=== PATIENT | male | born 1950 | race Caucasian/White ===

== ENCOUNTER 2018-01-12 09:56 | Emergency (ER) | payer OTHER, SELFPAY ==
[2018-01-12 10:05] VITALS: BP 161/83; PULSE 70; RESP 13; TEMP 36.8; O2SAT 99
--- NOTE | 2018-01-12 10:17 | ED.ARRPALP ---
HPI - Arrhythmia/Palpitations General Chief Complaint: Arrhythmia/Palpitations Stated Complaint: HEART IS POUNDING HARD Time Seen by Provider: 01/12/18 10:17 Source: patient Mode of arrival: ambulatory Limitations: no limitations History of Present Illness HPI narrative: Patient is a 67-year-old male who presents with 2 episodes of heart palpitations this morning. He has a history of PVCs he has actually had a Holter monitor back in 2017 which is when he was diagnosed. 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 He is followed by Dr. Franks in billing him. His this morning he was walking he felt a mild PVC which felt very typical then he felt a much larger 1. Both lasting of very briefly no chest pain. He has not had any since he has been in the emergency department. The he just wanted to be checked out. He denies any nausea diaphoresis or radiation of pain. MD complaint: skipped beats Onset (ago): minute(s) Related Data Home Medications Medication Instructions Recorded Confirmed carvedilol [Coreg] 3.125 mg PO Q DAY #0 08/03/17 01/12/18 diltiazem HCl [Cardizem LA] 0.5 tab PO BID #0 08/03/17 01/12/18 lisinopril 2 tab PO QPM #0 08/03/17 01/12/18 aspirin 81 mg tablet,delayed 81 mg PO QPM 12/29/17 01/12/18 release alprazolam [Xanax] 0.25 mg PO PRN PRN 01/12/18 01/12/18 doxazosin [Cardura] 8 tab PO QPM 01/12/18 01/12/18 Allergies Allergy/AdvReac Type Severity Reaction Status Date / Time Iodine and Iodide Containing Allergy Severe knocks Verified 01/12/18 10:46 Produc him out morphine [MORPHINE] Allergy Severe slows Verified 12/29/17 09:48 heart rate Review of Systems Review of Systems GENERAL: Denies chills, fatigue, malaise, fever, sweats, travel HEENT: Denies sinus pain, ear pain, sore throat, difficulty swallowing, neck pain RESPIRATORY: Denies dyspnea, cough, wheezing, hemoptysis, sputum. CARDIOVASCULAR: See HPI GASTROINTESTINAL: Denies nausea, vomiting, abdominal pain, diarrhea, constipation, melena. : Denies dysuria, frequency, incontinence, hematuria, urinary retention, flank pain. MUSCULOSKELETAL: Denies weakness, joint pain, or bony pain SKIN: No rash, no erythema, no pruritus NEUROLOGIC: Denies weakness, dizziness, headache, numbness, change in speech, confusion PSYCHIATRIC: No concerning psychosocial issues. 12 point review of systems is negative except for those stated above and HPI PFSH Medical History Coronary artery disease (Acute) Hypertension (Acute) Social History Smoking Status: Never smoker Exam Initial Vital Signs Initial Vital Signs: Vital Signs Temperature 98.2 F 01/12/18 10:05 Pulse Rate 70 01/12/18 10:05 Respiratory Rate 13 01/12/18 10:05 Blood Pressure 161/83 H 01/12/18 10:05 Pulse Oximetry 99 01/12/18 10:05 GENERAL: Well-appearing, well-nourished and in no acute distress. HEENT: Head atraumatic,EOMI, pupils reactive, face symmetric, neck is supple no JVD CARDIOVASCULAR: Regular rate and rhythm without murmurs, rubs or gallops. RESPIRATORY: Breath sounds equal bilaterally, no wheezes rales or rhonchi. ABDOMEN: Soft, nontender. Normoactive bowel sounds all 4 quadrants. No guarding or rebound. EXTREMITIES: Normal range of motion, no clubbing or edema. Neurovascularly intact NEUROLOGICAL: Alert and oriented x4.Normal gait and speech. SKIN: Warm, dry, no laceration, no petechiae, no rashes or lesions. Course Orders Ordered: ED Orders 01/12/18 10:19 Complete Blood Count AUTO DIFF Stat Comprehensive Metabolic Panel Stat Lipase Stat Troponin & CK Cardiac Panel Stat 01/12/18 10:33 XR chest 1V Stat Vital Signs - 8 hr 01/12/18 10:05 01/12/18 10:44 01/12/18 11:00 Temperature 98.2 F Pulse Rate 70 74 64 Respiratory Rate 13 14 17 Blood Pressure 161/83 H Blood Pressure [Left Arm] 152/84 H 141/78 H Pulse Oximetry 99 98 93 MDM - Arrhythmia/Palpitations Lab Data Attestation: I reviewed the patient's lab results. Result diagrams: 01/12/18 10:19 01/12/18 10:19 Lab Results 01/12/18 01/12/18 Range/Units 10:19 10:19 WBC 7.4 (4.5-11.0) X10^3/uL RBC 5.32 (4.5-5.9) X10^6/uL Hgb 17.1 (13.5-17.5) g/dL Hct 48.5 (41-53) % MCV 91.1 (80-100) fL MCH 32.1 (26-34) PG MCHC 35.2 (30-36) % RDW 13.5 (11.6-14.8) % Plt Count 216 (150-400) X10^3/uL Neut % (Auto) 49.3 L (50-75) % Lymph % (Auto) 36.3 (25-40) % [place] % (Auto) 6.7 (3-14) % Eos % (Auto) 5.3 H (2-4) % Baso % (Auto) 2.4 H (0-2) % Neut # (Auto) 3600 (1963-3338) /uL Sodium 144 (137-145) mmol/L Potassium 3.7 (3.4-5.1) mmol/L Chloride 106 (98-107) mmol/L Carbon Dioxide 26 (22-32) mmol/L BUN 12 (9-20) mg/dL Creatinine 0.90 (0.66-1.25) mg/dL Estimated GFR > 60.0 (>60) mL/min BUN/Creatinine Ratio 13.3 (6-22) Glucose 132 H (80-110) mg/dL Calcium 9.3 (8.4-10.2) mg/dL Total Bilirubin 0.7 (0.2-1.3) mg/dL AST 30 (17-59) IU/L ALT 23 (21-72) IU/L Alkaline Phosphatase 83 (38-126) U/L Total Creatine Kinase 57 (55-170) U/L Troponin I < 0.012 (0.01-0.034) ng/mL Total Protein 7.9 (6.3-8.2) g/dL Albumin 4.2 (3.5-5.0) g/dL Globulin 3.7 (1.7-4.1) g/dL Albumin/Globulin Ratio 1.1 (1.0-2.8) Lipase 71 (23-300) U/L Imaging Data Chest x-ray: Radiologist's impression: PROCEDURE: XR CHEST 1V INDICATIONS: chest pain TECHNIQUE: One view of the chest was acquired. COMPARISON: None. FINDINGS: Surgical changes and devices: None. Lungs and pleura: No pleural effusions or pneumothorax. Lungs are clear. Numerous hyperdensities scattered calcified granulomas measuring up to 5 mm Mediastinum: Mediastinal contours appear normal. Heart size is normal. Bones and chest wall: No suspicious bony lesions. Overlying soft tissues appear unremarkable. IMPRESSION: No acute disease. Numerous bilateral subcentimeter scattered presumed high density calcified granulomas although continued radiographic surveillance (in 6 months) to document stability could be performed given the absence of prior studies to exclude malignant/metastatic pulmonary nodule Dictated by: Virgil Young M.D. on 01/12/2018 at 11:03 ECG Data Attestation: I personally reviewed and interpreted this ECG as follows: Prior ECG tracings: not available for review Interpretation: Normal sinus rhythm rate [address] elevations no PVCs no T-wave inversions no priors to compare MDM Narrative Medical decision making narrative: Patient is aware of calcium deposits in his chest. He says he has had them for number of years. He has not been having any PVCs on the monitor he has been chest pain free. This sounds similar to PVCs. Patient has appointment with his primary care provider in 3 days. He had a nuclear stress test last June and is scheduled for 1 in 2018 he gets 1 every 2 years. I have discussed with him warning signs of when to return to the ED he understands we did not do a complete stress test but at this time I do not feel like he needs it. Signs and symptoms are consistent with PVCs. Discharge Plan Departure Patient Disposition: Home Clinical Impression: Palpitations Discharge Date/Time: 01/12/18 11:34 Interventions: ED Discharge Assessment Last Done: 01/12/18 11:33 Instructions: DI for Palpitations Activity Restrictions/Additional Instructions: *You have been diagnosed with heart palpitation *What to do: Needed follow up with her assistant associate professor in regards to heart palpitations and Holter monitor *Continue to take medications as directed *Follow up with your primary care provider in 2-3 days, Dr. Franks *Return to ER if you should have increasing chest pain, dizziness, lightheadedness increasing heart palpitations any new, worsening or concerning symptoms Prescriptions: No Action aspirin [Adult Low Dose Aspirin] 81 mg tablet,delayed release (DR/EC) 81 mg PO QPM RF: 0 lisinopril 40 MG tablet 2 tab PO QPM Qty: 0 RF: 0 diltiazem HCl [Cardizem LA] 420 MG tablet extended release 24 hr 0.5 tab PO BID Qty: 0 RF: 0 carvedilol [Coreg] 3.125 MG tablet 3.125 mg PO Q DAY Qty: 0 RF: 0 alprazolam [Xanax] 0.5 mg Tablet 0.25 mg PO PRN PRN (Reason: Anxiety) RF: 0 doxazosin [Cardura] 2 mg Tablet 8 tab PO QPM RF: 0 Referrals: Brian Franks MD [Non-Staff] - Gumaro Puckett MD [Primary Care Provider] -
--- NOTE | 2018-01-12 10:33 | DI.RAD.S_ITS ---
PROCEDURE: XR CHEST 1V INDICATIONS: chest pain TECHNIQUE: One view of the chest was acquired. COMPARISON: None. FINDINGS: Surgical changes and devices: None. Lungs and pleura: No pleural effusions or pneumothorax. Lungs are clear. Numerous hyperdensities scattered calcified granulomas measuring up to 5 mm Mediastinum: Mediastinal contours appear normal. Heart size is normal. Bones and chest wall: No suspicious bony lesions. Overlying soft tissues appear unremarkable. IMPRESSION: No acute disease. Numerous bilateral subcentimeter scattered presumed high density calcified granulomas although continued radiographic surveillance (in 6 months) to document stability could be performed given the absence of prior studies to exclude malignant/metastatic pulmonary nodule Dictated by: Virgil Young M.D. on 01/12/2018 at 11:03 Approved by: Virgil Young M.D. on 01/12/2018 at 11:05
[2018-01-12 10:38] LABS: Add Manual Diff / Slide Review NO; Basophils Percent Auto 2.4 % (0-2); Eosinophils Percent Auto 5.3 % (2-4); Hematocrit 48.5 % (41-53); Hemoglobin 17.1 g/dL (13.5-17.5); Lymphocytes Percent Auto 36.3 % (25-40); Mean Corpuscular HGB Conc 35.2 % (30-36); Mean Corpuscular Hemoglobin 32.1 PG (26-34); Mean Corpuscular Volume 91.1 fL (80-100); Monocytes Percent Auto 6.7 % (3-14); Neutrophils Absolute Auto 3600 /uL (3000-5900); Neutrophils Percent Auto 49.3 % (50-75); Platelet Count 216 X10^3/uL (150-400); Red Blood Cell Count 5.32 X10^6/uL (4.5-5.9); Red Cell Distribution Width 13.5 % (11.6-14.8); White Blood Cell Count 7.4 X10^3/uL (4.5-11.0)
[2018-01-12 10:44] VITALS: BP 152/84; PULSE 74; RESP 14; O2SAT 98
[2018-01-12 10:45] LABS: Alanine Aminotransferase 23 IU/L (21-72); Albumin 4.2 g/dL (3.5-5.0); Albumin Globulin Ratio 1.1 (1.0-2.8); Alkaline Phosphatase 83 U/L (38-126); Aspartate Aminotransferase 30 IU/L (17-59); BUN Creatinine Ratio 13.3 (6-22); Bilirubin Total 0.7 mg/dL (0.2-1.3); Blood Urea Nitrogen 12 mg/dL (9-20); Calcium 9.3 mg/dL (8.4-10.2); Carbon Dioxide 26 mmol/L (22-32); Chloride 106 mmol/L (98-107); Creatine Kinase 57 U/L (55-170); Estimated Glomerular Filt Rate > 60.0 mL/min (>60); Globulin 3.7 g/dL (1.7-4.1); Glucose 132 mg/dL (80-110); HEMOLYSIS 21 (0-50); Lipase 71 U/L (23-300); Potassium 3.7 mmol/L (3.4-5.1); Sodium 144 mmol/L (137-145); Total Protein 7.9 g/dL (6.3-8.2)
[2018-01-12 10:57] LABS: Troponin I < 0.012 ng/mL (0.01-0.034)
[2018-01-12 11:00] VITALS: BP 141/78; PULSE 64; RESP 17; O2SAT 93
== END 2018-01-12 11:34 | disposition home or self-care (01) ==
PROVIDERS: Emergency Provider Emergency Medicine; PCP Family Medicine
DX: R00.2 Palpitations (principal)
CPT/HCPCS: 36591; 71045; 80053; 82550; 82553; 83690; 84484; 85025; 93005; 93010; 93041; 99283; 99285

== ENCOUNTER 2018-03-22 06:48 | Emergency (ER) | payer OTHER, SELFPAY ==
[2018-03-22 07:02] VITALS: BP 171/84; PULSE 54; RESP 19; TEMP 36.7; O2SAT 97; BMI 35.9
--- NOTE | 2018-03-22 07:13 | DI.RAD.S_ITS ---
PROCEDURE: XR CHEST 1V INDICATIONS: chest pain TECHNIQUE: One view of the chest was acquired. COMPARISON: [facility], CR, XR CHEST 1V, 01/12/2018, 10:37. FINDINGS: Surgical changes and devices: None. Lungs and pleura: No pleural effusions or pneumothorax. Multiple calcified granulomas are noted, unchanged. There is overall appearance of minimal increased pulmonary vascularity. Mediastinum: Mediastinal contours appear normal. Heart size is normal. Bones and chest wall: No suspicious bony lesions. Overlying soft tissues appear unremarkable. IMPRESSION: Minimal increased pulmonary vascularity suggestive of edema. Dictated by: Sandi Schmitt M.D. on 03/22/2018 at 8:03 Approved by: Sandi Schmitt M.D. on 03/22/2018 at 8:04
--- NOTE | 2018-03-22 07:20 | PC.NURSE ---
pt reports two nights of burning chest on fire pain. ambulated self into ed this morning with slow and steady gate. pt is short of breath with ambulation. pt reports 2 stents placed after 2 heart attacks. This episode feels nothing like that. That felt like elephants sitting on my chest. Pt reported he stopped his xanax cold turkey and wonders if this episode is related to panic attack ptsd from [facility].
[2018-03-22 07:22] LABS: Add Manual Diff / Slide Review NO; Basophils Percent Auto 1.3 % (0-2); Eosinophils Percent Auto 3.9 % (2-4); Hematocrit 51.8 % (41-53); Hemoglobin 18.2 g/dL (13.5-17.5); Lymphocytes Percent Auto 34.1 % (25-40); Mean Corpuscular HGB Conc 35.1 % (30-36); Mean Corpuscular Hemoglobin 32.5 PG (26-34); Mean Corpuscular Volume 92.5 fL (80-100); Monocytes Percent Auto 7.2 % (3-14); Neutrophils Absolute Auto 5000 /uL (3000-5900); Neutrophils Percent Auto 53.5 % (50-75); Platelet Count 253 X10^3/uL (150-400); Red Blood Cell Count 5.59 X10^6/uL (4.5-5.9); Red Cell Distribution Width 13.3 % (11.6-14.8); White Blood Cell Count 9.4 X10^3/uL (4.5-11.0)
[2018-03-22 07:26] LABS: Alanine Aminotransferase 24 IU/L (21-72); Albumin 4.7 g/dL (3.5-5.0); Albumin Globulin Ratio 1.1 (1.0-2.8); Alkaline Phosphatase 88 U/L (38-126); Aspartate Aminotransferase 41 IU/L (17-59); BUN Creatinine Ratio 13.3 (6-22); Bilirubin Total 1.2 mg/dL (0.2-1.3); Blood Urea Nitrogen 12 mg/dL (9-20); Calcium 9.4 mg/dL (8.4-10.2); Carbon Dioxide 27 mmol/L (22-32); Chloride 102 mmol/L (98-107); Creatine Kinase 109 U/L (55-170); Estimated Glomerular Filt Rate > 60.0 mL/min (>60); Globulin 4.1 g/dL (1.7-4.1); Glucose 125 mg/dL (80-110); Lipase 106 U/L (23-300); Sodium 143 mmol/L (137-145); Total Protein 8.8 g/dL (6.3-8.2)
--- NOTE | 2018-03-22 07:36 | ED.CHESTPAIN ---
HPI - Chest Pain General Chief Complaint: Chest Pain Stated Complaint: whole chest is burning x3 hours Time Seen by Provider: 03/22/18 07:20 Source: patient Mode of arrival: ambulatory Limitations: no limitations History of Present Illness HPI narrative: Patient states that yesterday morning, he woke up with a sense of chest burning that spread across both sides of his chest. He states that about 30 sec after getting out of bed, the discomfort resolved. States he was fine all day long and then around 3:00 a.m. this morning he to that he was some burning sensation he states this time it lasted through morning decided to come patient states that he did not experience any shortness of breath, diaphoresis, or nausea. He states he has a history of indigestion from time to time, but that this has not been an ongoing problem for him. He does have a history of 2 MIs that had a normal stress test in 2017. He states he is due for another 05/23/2018. Patient denies any new pain or dyspnea on exertion. He states he has not been exercising much, and feels out of shape. Patient does have a history of chronic anxiety and was on Xanax since 1985 until a few weeks ago. He states that without the Xanax, he does become anxious more easily, and did feel little bit of anxiety during the episodes yesterday this. He states that currently, he is asymptomatic, and that symptoms resolved prior to him presenting to the emergency department. Patient has not been ill recently with anything and denies any other complaints this time. Discomfort at its worst was 6/10; now it is 0/10. Related Data Home Medications Medication Instructions Recorded Confirmed carvedilol [Coreg] 3.125 mg PO Q DAY #0 08/03/17 01/12/18 diltiazem HCl [Cardizem LA] 0.5 tab PO BID #0 08/03/17 01/12/18 lisinopril 2 tab PO QPM #0 08/03/17 01/12/18 aspirin 81 mg tablet,delayed 81 mg PO QPM 12/29/17 01/12/18 release alprazolam [Xanax] 0.25 mg PO PRN PRN 01/12/18 01/12/18 doxazosin [Cardura] 8 tab PO QPM 09/11/18 09/11/18 Allergies Allergy/AdvReac Type Severity Reaction Status Date / Time Iodine and Iodide Containing Allergy Severe knocks Verified 01/12/18 10:46 Produc him out morphine [MORPHINE] Allergy Severe slows Verified 12/29/17 09:48 heart rate Review of Systems Review of Systems All systems reviewed & are unremarkable except as noted in HPI and below Constitutional Denies chills, Denies fever(s), Denies lethargy and Denies weakness Eyes Denies change in vision, Denies eye discharge, Denies irritation and Denies loss of vision ENT Ears, Nose, Mouth, and Throat: Denies change in voice, Denies neck pain and Denies sore throat Cardiovascular Reports chest pain, Denies irregular heart rhythm, Denies lightheadedness, Denies palpitations, Denies dyspnea, Denies dyspnea on exertion and Denies orthopnea Respiratory Denies cough, Denies dyspnea, Denies dyspnea on exertion and Denies wheezing Gastrointestinal Gastrointestinal: Denies abdominal pain, Denies change in bowel habits, Denies diarrhea, Denies nausea and Denies vomiting Genitourinary Denies hematuria, Denies flank pain, Denies urinary incontinence and Denies urinary urgency Musculoskeletal Denies neck pain Integumentary/Breasts Denies pruritus, Denies erythema, Denies rash and Denies wounds Neurologic Denies confusion, Denies loss of vision and Denies weakness Psychiatric Denies anxiety, Denies confusion, Denies depression, Denies homicidal ideation and Denies suicidal ideation Endocrine Denies palpitations Hematologic/Lymphatic Denies easy bruising Allergic/Immunologic Denies wheezing [facility] Medical History Coronary artery disease (Acute) Hypertension (Acute) Social History Smoking Status: Never smoker Exam Initial Vital Signs Initial Vital Signs: Vital Signs Temperature 98.1 F 03/22/18 07:02 Pulse Rate 54 L 03/22/18 07:02 Respiratory Rate 03/22/18 07:02 Blood Pressure 171/84 H 03/22/18 07:02 Pulse Oximetry 97 03/22/18 07:02 Const General: cooperative and well developed Nutritional Appearance: well nourished Orientation: alert, awake, oriented x3 and not confused [facility] Head: normocephalic and atraumatic Ears: external ears normal Nose: external nose normal and No nasal discharge Face and sinus: face symmetric Mouth: oral mucosae normal and moist mucous membranes Teeth and gingiva: dentition normal Eyes General: appearance normal, both eyes and all related structures Eyelids: eyelids normal Conjunctivae: conjunctivae normal Sclera: sclerae normal Pupils: PERRL EOM: EOM intact bilaterally Neck Neck: normal visual inspection, trachea midline, No lymphadenopathy, No midline deformity and No JVD Lymphatic: No lymphedema Chest Chest: normal inspection of the chest Resp Effort & Inspection: normal respiratory effort, able to speak in complete sentences, no respiratory distress and no use of accessory muscles Auscultation: clear to auscultation bilaterally, no rales, no rhonchi and no wheezes Cardio Rate: regular rate Rhythm: regular rhythm Heart Sounds: no click, no gallops, no murmurs and no rubs Pulses: normal peripheral pulses GI Inspection: non-distended Palpation: soft, no hepatosplenomegaly, No guarding, No pulsatile mass and No tender Auscultation: normal bowel sounds Back/Spine/Pelvis Back: No CVA tenderness Cervical Spine: cervical ROM normal and No pain with cervical ROM Thoracic/Lumbar Spine: thoracic and lumbar spine normal to inspection Skin General: no rashes or lesions noted, No jaundice and No petechiae Neuro General: alert, oriented x3, gait normal and no focal motor deficits Speech: speech normal Extrem General: full ROM, no clubbing, cyanosis or edema, no pedal edema and no calf tenderness Psych Appearance: well kempt Mental Status: mental status grossly normal Attitude: cooperative Thought Content: normal and suicidality Judgment: judgment good Course Course Narrative: Patient remained stable and chest pain-free throughout his stay in the emergency department. His EKG was unremarkable. His cardiac enzymes were also unremarkable. I discussed with the patient that exercise would be beneficial to him, particularly if he is not having any worrisome symptoms with exercise. Additionally, the patient has a stress test coming up in June of 2018, and if this looks good, patient should work with doctor to develop an exercise program to help him get back in better shape and improve his health. We have discussed home management of the symptoms, as well as the usual indications for return. Orders Ordered: ED Orders 03/22/18 EKG-12 Lead Stat 03/22/18 07:00 Complete Blood Count AUTO DIFF Stat Comprehensive Metabolic Panel Stat Lipase Stat Troponin & CK Cardiac Panel Stat 03/22/18 07:13 XR chest 1V Stat Sodium Chloride (Normal Saline 0.9%) 1,000 mls @ 150 mls/hr IV CONT ASPEN Last Admin: 03/22/18 07:43 Dose: Not Given Discontinued Medications Aspirin (Aspirin Chew) 324 mg PO NOW ONE Stop: 03/22/18 07:14 Last Admin: 03/22/18 07:43 Dose: Not Given Vital Signs - 8 hr 03/22/18 07:02 03/22/18 07:44 Temperature 98.1 F Pulse Rate 54 L Respiratory Rate 19 Blood Pressure 171/84 H Blood Pressure [Right Arm] 134/83 Pulse Oximetry 97 MDM - Chest Pain Medical Records Data Attestation: I reviewed the patient's medical records. Lab Data Attestation: I reviewed the patient's lab results. Result diagrams: 03/22/18 07:00 03/22/18 07:00 Lab Results 03/22/18 03/22/18 Range/Units 07:00 07:00 WBC 9.4 (4.5-11.0) X10^3/uL RBC 5.59 (4.5-5.9) X10^6/uL Hgb 18.2 H (13.5-17.5) g/dL Hct 51.8 (41-53) % MCV 92.5 (80-100) fL MCH 32.5 (26-34) PG MCHC 35.1 (30-36) % RDW 13.3 (11.6-14.8) % Plt Count 253 (150-400) X10^3/uL Neut % (Auto) 53.5 (50-75) % Lymph % (Auto) 34.1 (25-40) % [place] % (Auto) 7.2 (3-14) % Eos % (Auto) 3.9 (2-4) % Baso % (Auto) 1.3 (0-2) % Neut # (Auto) 5000 (8114-3149) /uL Sodium 143 (137-145) mmol/L Potassium 4.0 (3.4-5.1) mmol/L Chloride 102 (98-107) mmol/L Carbon Dioxide 27 (22-32) mmol/L BUN 12 (9-20) mg/dL Creatinine 0.90 (0.66-1.25) mg/dL Estimated GFR > 60.0 (>60) mL/min BUN/Creatinine Ratio 13.3 (6-22) Glucose 125 H (80-110) mg/dL Calcium 9.4 (8.4-10.2) mg/dL Total Bilirubin 1.2 (0.2-1.3) mg/dL AST 41 (17-59) IU/L ALT 24 (21-72) IU/L Alkaline Phosphatase 88 (38-126) U/L Total Creatine Kinase 109 (55-170) U/L CK-MB (CK-2) 0.46 (<2.37) ng/mL CK-MB (CK-2) Rel Index 0.4 L (1.5-5.0) % Troponin I < 0.012 (0.01-0.034) ng/mL Total Protein 8.8 H (6.3-8.2) g/dL Albumin 4.7 (3.5-5.0) g/dL Globulin 4.1 (1.7-4.1) g/dL Albumin/Globulin Ratio 1.1 (1.0-2.8) Lipase 106 (23-300) U/L ECG Data Attestation: I personally reviewed and interpreted this ECG as follows: ( See below) Interpretation: 12 lead EKG performed on March 22, 2018 at 6:58 a.m.: Regular ventricular rhythm with a rate of 55 beats per minute PA interval 242 milliseconds QRS duration 97 milliseconds QTC interval 438 milliseconds normal axis no ectopy In summary, sinus bradycardia with first-degree AV block; nonspecific ST T wave abnormality; no evidence of acute DC; abnormal EKG, as interpreted by ED MD. Discharge Plan Departure Patient Disposition: Home Clinical Impression: Chest pain Interventions: ED Discharge Assessment Last Done: 03/22/18 08:19 Instructions: DI for Atypical Chest Pain Activity Restrictions/Additional Instructions: Your labs and EKG look great. There is no sign of heart attack at this time. You should plan to follow up for your stress test in June, as scheduled, and speak with your doctor about starting an exercise program that is appropriate for you, to help improve your overall health and heart health. If you develop chest pain with shortness of breath nausea and or sweating please return to the emergency department immediately. You may use [id number] products like Maalox or Tums to help with your heartburn. Prescriptions: No Action aspirin [Adult Low Dose Aspirin] 81 mg tablet,delayed release (DR/EC) 81 mg PO QPM RF: 0 lisinopril 40 MG tablet 2 tab PO QPM Qty: 0 RF: 0 diltiazem HCl [Cardizem LA] 420 MG tablet extended release 24 hr 0.5 tab PO BID Qty: 0 RF: 0 carvedilol [Coreg] 3.125 MG tablet 3.125 mg PO Q DAY Qty: 0 RF: 0 alprazolam [Xanax] 0.5 mg Tablet 0.25 mg PO PRN PRN (Reason: Anxiety) RF: 0 doxazosin [Cardura] 2 mg Tablet 8 tab PO QPM RF: 0 Referrals: Gumaro Puckett MD [Primary Care Provider] -
[2018-03-22 07:38] LABS: Troponin I < 0.012 ng/mL (0.01-0.034)
[2018-03-22 07:41] LABS: CKMB % Relative Index 0.4 % (1.5-5.0); Creatine Kinase MB 0.46 ng/mL (<2.37)
[2018-03-22 07:42] LABS: HEMOLYSIS 87 (0-50)
[2018-03-22 07:44] VITALS: BP 134/83
== END 2018-03-22 08:28 | disposition home or self-care (01) ==
PROVIDERS: Emergency Provider Emergency Medicine; PCP Family Medicine
DX: R07.89 Other chest pain (principal)
CPT/HCPCS: 36591; 71045; 80053; 82550; 82553; 83690; 84484; 85025; 93005; 99283; 99285

== ENCOUNTER 2018-03-27 19:52 | Emergency (ER) | payer OTHER, SELFPAY ==
--- NOTE | 2018-03-27 20:14 | ED_ITS ---
HPI - Chest Pain <CHERELLE Bright - Last Filed: 03/27/18 22:12> General Chief Complaint: Hypertension Stated Complaint: HIGH BP Time Seen by Provider: 03/27/18 20:13 Source: patient Mode of arrival: ambulatory Limitations: no limitations History of Present Illness HPI narrative: 67-year-old male with history of hypertension PTSD and anxiety that is a former smoker here for complaint of having elevated blood pressure over the past few days. He was seen in the emergency room several days ago and had a full workup that was negative for any acute findings. He states he has been taking his blood pressure medicine as prescribed. He does report that he has slowly been weaning himself off of Xanax over the past several months. He reports that he is totally stop taking the Xanax as a 2 weeks ago. He takes Xanax due to his PTSD issues. He denies any chest pain. Denies any headache. No abdominal pain. No shortness of breath. He denies any other concerns or complaints at this time. Related Data Home Medications Medication Instructions Recorded Confirmed carvedilol [Coreg] 3.125 mg PO Q DAY #0 08/03/17 01/12/18 diltiazem HCl [Cardizem LA] 0.5 tab PO BID #0 08/03/17 01/12/18 lisinopril 2 tab PO QPM #0 08/03/17 01/12/18 aspirin 81 mg tablet,delayed 81 mg PO QPM 12/29/17 01/12/18 release alprazolam [Xanax] 0.25 mg PO PRN PRN 01/12/18 01/12/18 doxazosin [Cardura] 8 tab PO QPM 01/12/18 01/12/18 Allergies Allergy/AdvReac Type Severity Reaction Status Date / Time Iodine and Iodide Containing Allergy Severe knocks Verified 03/27/18 20:19 Produc him out morphine [MORPHINE] Allergy Severe slows Verified 03/27/18 20:19 heart rate cimetidine Allergy Verified 03/27/18 20:19 Review of Systems <CHERELLE Bright - Last Filed: 03/27/18 22:12> Constitutional Denies chills, Denies fever(s), Denies lethargy and Denies weakness Eyes Denies change in vision, Denies eye discharge, Denies irritation and Denies loss of vision ENT Ears, Nose, Mouth, and Throat: Denies change in voice, Denies neck pain and Denies sore throat Cardiovascular Denies chest pain, Denies irregular heart rhythm, Denies lightheadedness, Denies palpitations, Denies dyspnea, Denies dyspnea on exertion and Denies orthopnea Comments: Elevated blood pressure Respiratory Denies cough, Denies dyspnea, Denies dyspnea on exertion and Denies wheezing Gastrointestinal Gastrointestinal: Denies abdominal pain, Denies change in bowel habits, Denies diarrhea, Denies nausea and Denies vomiting Musculoskeletal Denies neck pain Integumentary/Breasts Denies pruritus, Denies erythema, Denies rash and Denies wounds Neurologic Denies confusion, Denies loss of vision and Denies weakness Psychiatric Denies anxiety, Denies confusion, Denies depression, Denies homicidal ideation and Denies suicidal ideation Endocrine Denies palpitations Hematologic/Lymphatic Denies easy bruising Allergic/Immunologic Denies wheezing Exam <CHERELLE Bright - Last Filed: 03/27/18 22:12> Initial Vital Signs Initial Vital Signs: Vital Signs Pulse Rate 63 03/27/18 20:19 Respiratory Rate 12 03/27/18 20:19 Blood Pressure 192/93 H 03/27/18 20:19 Pulse Oximetry 98 03/27/18 20:19 Const General: cooperative and well developed Nutritional Appearance: well nourished Orientation: alert, awake, oriented x3 and not confused [facility] Mouth: oral mucosae normal and moist mucous membranes Eyes Conjunctivae: conjunctivae normal Sclera: sclerae normal Pupils: PERRL EOM: EOM intact bilaterally Resp Effort & Inspection: normal respiratory effort, able to speak in complete sentences, no respiratory distress and no use of accessory muscles Auscultation: clear to auscultation bilaterally, no rales, no rhonchi and no wheezes Cardio Rate: regular rate Rhythm: regular rhythm Heart Sounds: no click, no gallops, no murmurs and no rubs Pulses: normal peripheral pulses GI Inspection: non-distended Palpation: soft, no hepatosplenomegaly, No guarding, No pulsatile mass and No tender Auscultation: normal bowel sounds General: No CVA tenderness Skin General: no rashes or lesions noted, No jaundice and No petechiae Neuro General: alert, oriented x3, gait normal and no focal motor deficits Speech: speech normal <DO Gracie Brooks Last Filed: 03/28/18 06:12> Initial Vital Signs Initial Vital Signs: Vital Signs Pulse Rate 63 03/27/18 20:19 Respiratory Rate 12 03/27/18 20:19 Blood Pressure 192/93 H 03/27/18 20:19 Pulse Oximetry 98 03/27/18 20:19 Course <CHERELLE Bright - Last Filed: 03/27/18 22:12> Orders Ordered: ED Orders 03/27/18 20:42 XR chest 1V Stat 03/27/18 21:00 Complete Blood Count AUTO DIFF Stat Comprehensive Metabolic Panel Stat Troponin & CK Cardiac Panel Stat Vital Signs - 8 hr 03/27/18 20:19 03/27/18 21:00 03/27/18 21:59 Pulse Rate 63 55 L 57 L Respiratory Rate 12 18 20 Blood Pressure 192/93 H 146/87 H Blood Pressure [Right Arm] 184/98 H Pulse Oximetry 98 93 98 <Emmett Cornell DO - Last Filed: 03/28/18 06:12> Orders Ordered: ED Orders 03/27/18 20:42 XR chest 1V Stat 03/27/18 21:00 Complete Blood Count AUTO DIFF Stat Comprehensive Metabolic Panel Stat Troponin & CK Cardiac Panel Stat Vital Signs - 8 hr 03/27/18 20:19 03/27/18 21:00 03/27/18 21:59 Pulse Rate 63 55 L 57 L Respiratory Rate 12 18 20 Blood Pressure 192/93 H 146/87 H Blood Pressure [Right Arm] 184/98 H Pulse Oximetry 98 93 98 MDM - Chest Pain <CHERELLE Bright - Last Filed: 03/27/18 22:12> Lab Data Result diagrams: 03/27/18 21:00 03/27/18 21:00 Lab Results 03/27/18 03/27/18 Range/Units 21:00 21:00 WBC 11.4 H (4.5-11.0) X10^3/uL RBC 5.19 (4.5-5.9) X10^6/uL Hgb 16.4 (13.5-17.5) g/dL Hct 48.2 (41-53) % MCV 92.9 (80-100) fL MCH 31.6 (26-34) PG MCHC 34.1 (30-36) % RDW 13.1 (11.6-14.8) % Plt Count 229 (150-400) X10^3/uL Neut % (Auto) 54.7 (50-75) % Lymph % (Auto) 32.3 (25-40) % Bonner % (Auto) 9.5 (3-14) % Eos % (Auto) 3.3 (2-4) % Baso % (Auto) 0.2 (0-2) % Neut # (Auto) 6200 H (8074-5703) /uL Sodium 141 (137-145) mmol/L Potassium 3.7 (3.4-5.1) mmol/L Chloride 105 (98-107) mmol/L Carbon Dioxide 25 (22-32) mmol/L BUN 14 (9-20) mg/dL Creatinine 0.90 (0.66-1.25) mg/dL Estimated GFR > 60.0 (>60) mL/min BUN/Creatinine Ratio 15.6 (6-22) Glucose 113 H (80-110) mg/dL Calcium 9.2 (8.4-10.2) mg/dL Total Bilirubin 0.5 (0.2-1.3) mg/dL AST 29 (17-59) IU/L ALT 29 (21-72) IU/L Alkaline Phosphatase 76 (38-126) U/L Total Creatine Kinase 97 (55-170) U/L CK-MB (CK-2) TNP CK-MB (CK-2) Rel Index TNP Troponin I < 0.012 (0.01-0.034) ng/mL Total Protein 7.6 (6.3-8.2) g/dL Albumin 4.1 (3.5-5.0) g/dL Globulin 3.5 (1.7-4.1) g/dL Albumin/Globulin Ratio 1.2 (1.0-2.8) Imaging Data Chest x-ray: Radiologist's impression: [address] [address] XRay Report Signed Patient: Ozzy Dooley EMR#: [id number] : 1Acct:[id number] Age/Sex: 67 / MDate of Service: 03/27/18 Loc: ED Accession Number: [id number] Procedure: XR chest 1V Ordering Provider: Calin Pierson PROCEDURE: XR CHEST 1V INDICATIONS: States elevated blood pressure TECHNIQUE: One view of the chest was acquired. COMPARISON: [facility], CR, XR CHEST 1V, 03/22/2018, 7:34. FINDINGS: Surgical changes and devices: None. Lungs and pleura: No pleural effusions or pneumothorax. Bilateral left greater than right calcified granulomata are unchanged. Lungs are otherwise clear. Mediastinum: Mediastinal contours appear normal. Heart size is normal. Bones and chest wall: No suspicious bony lesions. Overlying soft tissues appear unremarkable. IMPRESSION: No acute process. Dictated by: Reggie Chery M.D. on 03/27/2018 at 20:54 Approved by: Reggie Chery M.D. on 03/27/2018 at 20:54 ECG Data Interpretation: EKG shows normal sinus rhythm with no ST elevation or depression. No ectopy. Ventricular rate is 61. Pr interval of 246. QRS duration 96. QT of 424. MDM Narrative Medical decision making narrative: Chest x-ray was obtained was negative for any acute findings. CBC and Chem panel was obtained was also unremarkable. Cardiac enzymes were obtained and were negative. Patient with no pain or discomfort at this time frame. No signs of end-organ damage. Differential between his PTSD/anxiety causing his blood pressure to be elevated as he is not taking his Xanax anymore or whether not his blood pressure is not well controlled. Will have patient monitor his blood pressure and follow up with his primary care provider later this week. For any worsening symptoms return to the emergency room. Blood pressure is was in the 180s over 90s today <Emmett Cornell DO - Last Filed: 03/28/18 06:12> Lab Data Lab Results 03/27/18 03/27/18 Range/Units 21:00 21:00 WBC 11.4 H (4.5-11.0) X10^3/uL RBC 5.19 (4.5-5.9) X10^6/uL Hgb 16.4 (13.5-17.5) g/dL Hct 48.2 (41-53) % MCV 92.9 (80-100) fL MCH 31.6 (26-34) PG MCHC 34.1 (30-36) % RDW 13.1 (11.6-14.8) % Plt Count 229 (150-400) X10^3/uL Neut % (Auto) 54.7 (50-75) % Lymph % (Auto) 32.3 (25-40) % Bonner % (Auto) 9.5 (3-14) % Eos % (Auto) 3.3 (2-4) % Baso % (Auto) 0.2 (0-2) % Neut # (Auto) 6200 H (5284-2829) /uL Sodium 141 (137-145) mmol/L Potassium 3.7 (3.4-5.1) mmol/L Chloride 105 (98-107) mmol/L Carbon Dioxide 25 (22-32) mmol/L BUN 14 (9-20) mg/dL Creatinine 0.90 (0.66-1.25) mg/dL Estimated GFR > 60.0 (>60) mL/min BUN/Creatinine Ratio 15.6 (6-22) Glucose 113 H (80-110) mg/dL Calcium 9.2 (8.4-10.2) mg/dL Total Bilirubin 0.5 (0.2-1.3) mg/dL AST 29 (17-59) IU/L ALT 29 (21-72) IU/L Alkaline Phosphatase 76 (38-126) U/L Total Creatine Kinase 97 (55-170) U/L CK-MB (CK-2) TNP CK-MB (CK-2) Rel Index TNP Troponin I < 0.012 (0.01-0.034) ng/mL Total Protein 7.6 (6.3-8.2) g/dL Albumin 4.1 (3.5-5.0) g/dL Globulin 3.5 (1.7-4.1) g/dL Albumin/Globulin Ratio 1.2 (1.0-2.8) Discharge Plan Departure Patient Disposition: Home Clinical Impression: Hypertension Discharge Date/Time: 03/27/18 21:59 Interventions: ED Discharge Assessment Last Done: 03/27/18 21:59 Instructions: DI for High Blood Pressure Activity Restrictions/Additional Instructions: Laboratory results and chest x-ray were unremarkable today. Make sure your checking her blood pressure daily and writing down your results to bring the results with you when you follow-up with her primary care provider. Elevated blood pressure may be due to anxiety secondary to the PTSD or may be due high blood pressure and may need to have medication changes. Follow up with her primary care provider. For any worsening symptoms return to the emergency room. Prescriptions: No Action aspirin [Adult Low Dose Aspirin] 81 mg tablet,delayed release (DR/EC) 81 mg PO QPM RF: 0 lisinopril 40 MG tablet 2 tab PO QPM Qty: 0 RF: 0 diltiazem HCl [Cardizem LA] 420 MG tablet extended release 24 hr 0.5 tab PO BID Qty: 0 RF: 0 carvedilol [Coreg] 3.125 MG tablet 3.125 mg PO Q DAY Qty: 0 RF: 0 alprazolam [Xanax] 0.5 mg Tablet 0.25 mg PO PRN PRN (Reason: Anxiety) RF: 0 doxazosin [Cardura] 2 mg Tablet 8 tab PO QPM RF: 0 Referrals: Gumaro Puckett MD [Primary Care Provider] - <Emmett Cornell DO - Last Filed: 03/28/18 06:12> Cosign ED Attending Dada Attestation: I was immediately available in the department for consultation. Documentation has been reviewed. I agree with assessment and plan.
[2018-03-27 20:19] VITALS: BP 192/93; PULSE 63; RESP 12; O2SAT 98; BMI 34.3
--- NOTE | 2018-03-27 20:42 | DI.RAD.S_ITS ---
PROCEDURE: XR CHEST 1V INDICATIONS: States elevated blood pressure TECHNIQUE: One view of the chest was acquired. COMPARISON: [facility], CR, XR CHEST 1V, 03/22/2018, 7:34. FINDINGS: Surgical changes and devices: None. Lungs and pleura: No pleural effusions or pneumothorax. Bilateral left greater than right calcified granulomata are unchanged. Lungs are otherwise clear. Mediastinum: Mediastinal contours appear normal. Heart size is normal. Bones and chest wall: No suspicious bony lesions. Overlying soft tissues appear unremarkable. IMPRESSION: No acute process. Dictated by: Reggie Chery M.D. on 03/27/2018 at 20:54 Approved by: Reggie Chery M.D. on 03/27/2018 at 20:54
[2018-03-27 21:00] VITALS: BP 184/98; PULSE 55; RESP 18; O2SAT 93
--- NOTE | 2018-03-27 21:05 | PC.NURSE ---
Pt states gradual increase in blood pressure over past few days. Has a tingling sensation in his nose and state he feels off
[2018-03-27 21:11] LABS: Add Manual Diff / Slide Review NO; Basophils Percent Auto 0.2 % (0-2); Eosinophils Percent Auto 3.3 % (2-4); Hematocrit 48.2 % (41-53); Hemoglobin 16.4 g/dL (13.5-17.5); Lymphocytes Percent Auto 32.3 % (25-40); Mean Corpuscular HGB Conc 34.1 % (30-36); Mean Corpuscular Hemoglobin 31.6 PG (26-34); Mean Corpuscular Volume 92.9 fL (80-100); Monocytes Percent Auto 9.5 % (3-14); Neutrophils Absolute Auto 6200 /uL (3000-5900); Neutrophils Percent Auto 54.7 % (50-75); Platelet Count 229 X10^3/uL (150-400); Red Blood Cell Count 5.19 X10^6/uL (4.5-5.9); Red Cell Distribution Width 13.1 % (11.6-14.8); White Blood Cell Count 11.4 X10^3/uL (4.5-11.0)
[2018-03-27 21:18] LABS: Alanine Aminotransferase 29 IU/L (21-72); Albumin 4.1 g/dL (3.5-5.0); Albumin Globulin Ratio 1.2 (1.0-2.8); Alkaline Phosphatase 76 U/L (38-126); Aspartate Aminotransferase 29 IU/L (17-59); BUN Creatinine Ratio 15.6 (6-22); Bilirubin Total 0.5 mg/dL (0.2-1.3); Blood Urea Nitrogen 14 mg/dL (9-20); Calcium 9.2 mg/dL (8.4-10.2); Carbon Dioxide 25 mmol/L (22-32); Chloride 105 mmol/L (98-107); Creatine Kinase 97 U/L (55-170); Estimated Glomerular Filt Rate > 60.0 mL/min (>60); Globulin 3.5 g/dL (1.7-4.1); Glucose 113 mg/dL (80-110); HEMOLYSIS 47 (0-50); Potassium 3.7 mmol/L (3.4-5.1); Sodium 141 mmol/L (137-145); Total Protein 7.6 g/dL (6.3-8.2)
[2018-03-27 21:30] LABS: Troponin I < 0.012 ng/mL (0.01-0.034)
[2018-03-27 21:59] VITALS: BP 146/87; PULSE 57; RESP 20; O2SAT 98
== END 2018-03-27 21:59 | disposition home or self-care (01) ==
PROVIDERS: Emergency Provider Nurse Practitioner Family; PCP Family Medicine
DX: I10 Essential (primary) hypertension (principal)
CPT/HCPCS: 36415; 71045; 80053; 82550; 84484; 85025; 93005; 99283; 99285

== ENCOUNTER 2018-04-26 22:28 | Emergency (ER) | payer OTHER, SELFPAY ==
[2018-04-26 22:41] VITALS: BP 160/90; PULSE 77; RESP 18; TEMP 36.9; O2SAT 97; BMI 33.6
--- NOTE | 2018-04-26 23:06 | DI.RAD.S_ITS ---
PROCEDURE: XR CHEST 1V INDICATIONS: palpitation TECHNIQUE: One view of the chest was acquired. COMPARISON: [facility], CR, XR CHEST 1V, 03/27/2018, 20:47. FINDINGS: Surgical changes and devices: None. Lungs and pleura: No pleural effusions or pneumothorax. There is mild pulmonary vascular congestion. Increased reticular lung markings are noted. Numerous calcified granuloma are again seen in bilateral lung steve. No definite focal infiltrate. Mediastinum: Mediastinal contours appear normal. Heart size is moderately enlarged. Bones and chest wall: No suspicious bony lesions. Overlying soft tissues appear unremarkable. IMPRESSION: Mild pulmonary vascular congestion. Chronic increased interstitial lung markings. Bilateral calcified granuloma. No definite focal infiltrate. No gross pneumothorax. Dictated by: Dilan Alvarado M.D. on 04/27/2018 at 9:21 Approved by: Dilan Alvarado M.D. on 04/27/2018 at 9:21
[2018-04-26 23:15] VITALS: BP 129/73; PULSE 62; RESP 18; O2SAT 95
[2018-04-26 23:28] LABS: Add Manual Diff / Slide Review NO; Basophils Percent Auto 1.3 % (0-2); Eosinophils Percent Auto 3.7 % (2-4); Hematocrit 47.4 % (41-53); Hemoglobin 16.8 g/dL (13.5-17.5); Lymphocytes Percent Auto 40.5 % (25-40); Mean Corpuscular HGB Conc 35.4 % (30-36); Mean Corpuscular Hemoglobin 32.7 PG (26-34); Mean Corpuscular Volume 92.5 fL (80-100); Monocytes Percent Auto 6.7 % (3-14); Neutrophils Absolute Auto 4900 /uL (1500-7000); Neutrophils Percent Auto 47.8 % (50-75); Platelet Count 213 X10^3/uL (150-400); Red Blood Cell Count 5.12 X10^6/uL (4.5-5.9); Red Cell Distribution Width 13.4 % (11.6-14.8); White Blood Cell Count 10.2 X10^3/uL (4.5-11.0)
[2018-04-26 23:30] VITALS: BP 142/72; PULSE 58; RESP 16; O2SAT 94
[2018-04-26 23:36] LABS: Alanine Aminotransferase 32 IU/L (21-72); Albumin 4.2 g/dL (3.5-5.0); Albumin Globulin Ratio 1.2 (1.0-2.8); Alkaline Phosphatase 72 U/L (38-126); Aspartate Aminotransferase 37 IU/L (17-59); Bilirubin Total 0.6 mg/dL (0.2-1.3); Blood Urea Nitrogen 18 mg/dL (9-20); Carbon Dioxide 25 mmol/L (22-32); Chloride 103 mmol/L (98-107); Creatine Kinase 82 U/L (55-170); Estimated Glomerular Filt Rate > 60.0 mL/min (>60); Globulin 3.6 g/dL (1.7-4.1); Glucose 111 mg/dL (80-110); Potassium 3.5 mmol/L (3.4-5.1); Sodium 144 mmol/L (137-145); Total Protein 7.8 g/dL (6.3-8.2)
[2018-04-26 23:39] LABS: HEMOLYSIS 54 (0-50)
[2018-04-26 23:49] LABS: Troponin I < 0.012 ng/mL (0.01-0.034)
[2018-04-27 00:19] LABS: Thyroid Stimulating Hormone 1.99 uIU/mL (0.47-4.68)
[2018-04-27 00:42] VITALS: BP 155/77; PULSE 49; RESP 19; O2SAT 97
--- NOTE | 2018-04-27 01:07 | ED.ARRPALP ---
HPI - Arrhythmia/Palpitations General Chief Complaint: Arrhythmia/Palpitations Stated Complaint: heart pounding Time Seen by Provider: 04/27/18 00:09 Source: patient Mode of arrival: ambulatory Limitations: no limitations History of Present Illness HPI narrative: A 67-year-old male who comes in with complaint of palpitations. Patient states that each night out of the last 3 nights he has woken from sleep with a pounding fast heartbeat. Patient states that he feels very anxious. He thought he was having a panic attack so we tried Xanax which helped for the 1st 2 nights. Patient has had a history of palpitations and has been diagnosed with PVCs. He has worn a Holter monitor in the past. Most recently a couple months ago. Patient denies any fevers, no lightheadedness or passing-out, no chest pain or pressure, no shortness of breath. He feels like he has a burning in his back and describes it as his entire back but does not feel pressure or pain. Patient is not having any new diarrhea or constipation no new urinary issues or swelling in his extremities. He sees Dr. Franks through Cardiology for coronary artery disease. He does take diltiazem but per the patient does not have any cardiac arrhythmia other than occasional PVCs. He states this was started after his last heart attack many years ago and was never stopped. Related Data Home Medications Medication Instructions Recorded Confirmed carvedilol [Coreg] 3.125 mg PO Q DAY #0 08/03/17 01/12/18 diltiazem HCl [Cardizem LA] 0.5 tab PO BID #0 08/03/17 01/12/18 lisinopril 2 tab PO QPM #0 08/03/17 01/12/18 aspirin 81 mg tablet,delayed 81 mg PO QPM 12/29/17 01/12/18 release alprazolam [Xanax] 0.25 mg PO PRN PRN 01/12/18 01/12/18 doxazosin [Cardura] 8 tab PO QPM 01/12/18 01/12/18 diltiazem HCl 04/26/18 doxazosin 4 tab 04/26/18 Allergies Allergy/AdvReac Type Severity Reaction Status Date / Time Iodine and Iodide Containing Allergy Severe knocks Verified 04/26/18 22:46 Produc him out morphine [MORPHINE] Allergy Severe slows Verified 04/26/18 22:46 heart rate cimetidine Allergy Verified 04/26/18 22:46 Review of Systems Review of Systems All systems reviewed & are unremarkable except as noted in HPI and below Constitutional Denies chills, Denies fatigue, Denies fever(s) and Denies weakness Cardiovascular Denies chest pain, Denies chest pain at rest, Denies diaphoresis, Denies syncope, Reports rapid heart rate, Denies edema, Denies irregular heart rhythm, Denies lightheadedness, Denies radiating jaw, neck or arm pain, Denies palpitations, Denies dyspnea, Denies dyspnea on exertion, Denies orthopnea and Reports slow heart rate (normally has slow heart rate) Respiratory Denies chest congestion, Denies cough, Denies excessive phlegm production, Denies dyspnea and Denies dyspnea on exertion Gastrointestinal Gastrointestinal: Denies abdominal pain, Denies change in bowel habits, Denies diarrhea, Denies nausea and Denies vomiting Genitourinary Denies dysuria, Denies flank pain and Denies urinary frequency Musculoskeletal Denies back pain Neurologic Denies syncope and Denies weakness Psychiatric Reports anxiety and Reports other (ptsd) Endocrine Denies fatigue and Denies palpitations [facility] Medical History Coronary artery disease (Acute) Hypertension (Acute) Social History Smoking Status: Former smoker Exam Narrative Exam Narrative: GENERAL: Alert and oriented x three, obese, well-appearing male in mild distress. Patient walked to the bathroom and returned to the room just prior to my evaluation without any issue. HEENT: Head normocephalic, atraumatic, EOMI, pupils reactive, face symmetric, moist mucous membranes NECK: Supple, full range of motion CARDIOVASCULAR: Regular rate and rhythm without murmurs, rubs or gallops. RESPIRATORY: Breath sounds equal bilaterally, no wheezes rales or rhonchi. ABDOMEN: Soft, nontender. Normoactive bowel sounds all 4 quadrants. No guarding or rebound, rigidity, no mass : No CVA tenderness EXTREMITIES: Normal range of motion, no clubbing or edema. Neurovascularly intact NEUROLOGICAL: Cranial nerves II through XII grossly intact. Moving all extremities SKIN: Warm, dry, no petechiae, no rashes or lesions. Initial Vital Signs Initial Vital Signs: Vital Signs Temperature 98.4 F 04/26/18 22:41 Pulse Rate 77 04/26/18 22:41 Respiratory Rate 18 04/26/18 22:41 Blood Pressure 160/90 H 04/26/18 22:41 Pulse Oximetry 97 04/26/18 22:41 Course Orders Ordered: ED Orders 04/26/18 22:34 EKG-12 Lead Stat 04/26/18 23:06 XR chest 1V Stat 04/26/18 23:18 Complete Blood Count AUTO DIFF Stat Comprehensive Metabolic Panel Stat Magnesium Stat Thyroid Stimulating Hormone Stat Troponin & CK Cardiac Panel Stat Vital Signs - 8 hr 04/26/18 22:41 04/26/18 23:15 04/26/18 23:30 Temperature 98.4 F Pulse Rate 77 62 58 L Respiratory Rate 18 18 16 Blood Pressure 160/90 H Blood Pressure [Right Arm] 129/73 142/72 H Pulse Oximetry 97 95 94 04/27/18 00:42 04/27/18 01:23 Temperature Pulse Rate 49 L 53 L Respiratory Rate 19 14 Blood Pressure 139/91 H Blood Pressure [Right Arm] 155/77 H Pulse Oximetry 97 97 MDM - Arrhythmia/Palpitations Lab Data Attestation: I reviewed the patient's lab results. Result diagrams: 04/26/18 23:18 04/26/18 23:18 Lab Results 04/26/18 04/26/18 04/26/18 Range/Units 23:18 23:18 23:18 WBC 10.2 (4.5-11.0) X10^3/uL RBC 5.12 (4.5-5.9) X10^6/uL Hgb 16.8 (13.5-17.5) g/dL Hct 47.4 (41-53) % MCV 92.5 (80-100) fL MCH 32.7 (26-34) PG MCHC 35.4 (30-36) % RDW 13.4 (11.6-14.8) % Plt Count 213 (150-400) X10^3/uL Neut % (Auto) 47.8 L (50-75) % Lymph % (Auto) 40.5 H (25-40) % Tyrrell % (Auto) 6.7 (3-14) % Eos % (Auto) 3.7 (2-4) % Baso % (Auto) 1.3 (0-2) % Neut # (Auto) 4900 (6731-1811) /uL Sodium 144 (137-145) mmol/L Potassium 3.5 (3.4-5.1) mmol/L Chloride 103 (98-107) mmol/L Carbon Dioxide 25 (22-32) mmol/L BUN 18 (9-20) mg/dL Creatinine 1.00 (0.66-1.25) mg/dL Estimated GFR > 60.0 (>60) mL/min BUN/Creatinine Ratio 18.0 (6-22) Glucose 111 H (80-110) mg/dL Calcium 9.0 (8.4-10.2) mg/dL Magnesium 2.0 (1.6-2.3) mg/dL Total Bilirubin 0.6 (0.2-1.3) mg/dL AST 37 (17-59) IU/L ALT 32 (21-72) IU/L Alkaline Phosphatase 72 (38-126) U/L Total Creatine Kinase 82 (55-170) U/L CK-MB (CK-2) TNP CK-MB (CK-2) Rel Index TNP Troponin I < 0.012 (0.01-0.034) ng/mL Total Protein 7.8 (6.3-8.2) g/dL Albumin 4.2 (3.5-5.0) g/dL Globulin 3.6 (1.7-4.1) g/dL Albumin/Globulin Ratio 1.2 (1.0-2.8) TSH 1.99 (0.47-4.68) uIU/mL Imaging Data Chest x-ray: Attestation: I personally reviewed and interpreted this imaging study as follows: My impression: No effusion, no pneumonia or infiltrate, no pneumothorax. Patient has bilateral granulomas that appears similar to 03/27/2018. mediastinum appears similar. ECG Data Attestation: I personally reviewed and interpreted this ECG as follows: Prior ECG tracings: available for review (Appears similar to 03/22/2018.) Interpretation: Sinus bradycardia with a first-degree AV block rate of 59 P are interval of 238, QRS of 118 and QTC of [address] elevation, nonspecific ST changes. MDM Narrative Medical decision making narrative: Patient has been having palpitations that wake him from sleep for the last 3 nights. Patient states they do not happen during the day. He is on diltiazem which seems odd for anything other than cardiac arrhythmia but patient states that he has been told he has PVCs but nothing else. He does see cardiology. He states he has had a Holter monitor probably in the last 6 months. Patient and discussed he has follow-up on May 07 plan to keep that appointment. We discussed signs and symptoms to watch for. Patient is comfortable returning home, recommended to continue his medications at this time. We discussed the possible differential of causes. Discharge Plan Departure Patient Disposition: Home Clinical Impression: Heart palpitations Discharge Date/Time: 04/27/18 01:23 Interventions: ED Discharge Assessment Last Done: 04/27/18 01:23 Instructions: DI for Palpitations Activity Restrictions/Additional Instructions: Follow-up with your terrazzo worker helper your scheduled appointment. Discuss possible holter/ziopatch with your terrazzo worker helper. Continue your home medications as prescribed. Return to the emergency department for worsening symptoms, new chest pain, shortness of breath, passing out, persistent vomiting other new or concerning symptoms. Prescriptions: No Action aspirin [Adult Low Dose Aspirin] 81 mg tablet,delayed release (DR/EC) 81 mg PO QPM RF: 0 lisinopril 40 MG tablet 2 tab PO QPM Qty: 0 RF: 0 diltiazem HCl [Cardizem LA] 420 MG tablet extended release 24 hr 0.5 tab PO BID Qty: 0 RF: 0 carvedilol [Coreg] 3.125 MG tablet 3.125 mg PO Q DAY Qty: 0 RF: 0 alprazolam [Xanax] 0.5 mg Tablet 0.25 mg PO PRN PRN (Reason: Anxiety) RF: 0 doxazosin [Cardura] 2 mg Tablet 8 tab PO QPM RF: 0 diltiazem HCl 420 mg tablet extended release 24 hr RF: 0 doxazosin 2 mg tablet 4 tab RF: 0 Referrals: Gumaro Puckett MD [Primary Care Provider] -
[2018-04-27 01:23] VITALS: BP 139/91; PULSE 53; RESP 14; O2SAT 97
== END 2018-04-27 01:23 | disposition home or self-care (01) ==
PROVIDERS: Emergency Provider Emergency Medicine; PCP Family Medicine
DX: R00.2 Palpitations (principal)
CPT/HCPCS: 71045; 80053; 82550; 83735; 84443; 84484; 85025; 93005; 99283; 99285

== ENCOUNTER 2018-05-24 00:50 | Emergency (ER) | payer OTHER, SELFPAY ==
[2018-05-24 01:14] VITALS: BP 159/97; PULSE 61; RESP 16; O2SAT 96; BMI 38.4
[2018-05-24 01:16] VITALS: BP 159/86; PULSE 52; RESP 12; TEMP 36.2; O2SAT 96
--- NOTE | 2018-05-24 01:16 | DI.RAD.S_ITS ---
PROCEDURE: XR CHEST 1V INDICATIONS: chest pain TECHNIQUE: One view of the chest was acquired. COMPARISON: [facility], CR, XR CHEST 1V, 01/12/2018, 10:37. [facility], CR, XR CHEST 1V, 04/26/2018, 23:31. [facility], CR, XR CHEST 1V, 03/27/2018, 20:47. FINDINGS: Surgical changes and devices: None. Lungs and pleura: No pleural effusions or pneumothorax. Lungs are again seen to contain multiple bilateral left greater than right calcified granulomas, each measuring approximately 4-6 mm in dimension.. Mediastinum: Mediastinal contours appear normal. Heart size is normal. Bones and chest wall: No suspicious bony lesions. Overlying soft tissues appear unremarkable. IMPRESSION: Bilateral left greater than right stable appearing calcified granulomas within the lung parenchyma, no source of chest pain is found. Dictated by: Emiliano Moe M.D. on 05/24/2018 at 8:32 Approved by: Emiliano Moe M.D. on 05/24/2018 at 8:33
[2018-05-24 01:26] LABS: Add Manual Diff / Slide Review NO; Basophils Absolute Auto 0 /uL (0-100); Basophils Percent Auto 0.4 % (0-2); Eosinophils Absolute Auto 600 /uL (0-450); Eosinophils Percent Auto 5.6 % (2-4); Hematocrit 48.9 % (41-53); Hemoglobin 16.9 g/dL (13.5-17.5); Lymphocytes Absolute Auto 4200 /uL (1100-4500); Lymphocytes Percent Auto 39.2 % (25-40); Mean Corpuscular HGB Conc 34.5 % (30-36); Mean Corpuscular Hemoglobin 32.2 PG (26-34); Mean Corpuscular Volume 93.1 fL (80-100); Monocytes Absolute Auto 700 /uL (0-900); Neutrophils Absolute Auto 5100 /uL (1500-7000); Neutrophils Percent Auto 47.8 % (50-75); Platelet Count 190 X10^3/uL (150-400); Red Blood Cell Count 5.25 X10^6/uL (4.5-5.9); Red Cell Distribution Width 13.6 % (11.6-14.8); White Blood Cell Count 10.6 X10^3/uL (4.5-11.0)
[2018-05-24 01:28] LABS: Alanine Aminotransferase 28 IU/L (21-72); Albumin 4.2 g/dL (3.5-5.0); Albumin Globulin Ratio 1.1 (1.0-2.8); Alkaline Phosphatase 101 U/L (38-126); Aspartate Aminotransferase 30 IU/L (17-59); Bilirubin Total 0.5 mg/dL (0.2-1.3); Blood Urea Nitrogen 14 mg/dL (9-20); Calcium 9.2 mg/dL (8.4-10.2); Carbon Dioxide 23 mmol/L (22-32); Chloride 106 mmol/L (98-107); Creatine Kinase 58 U/L (55-170); Estimated Glomerular Filt Rate > 60.0 mL/min (>60); Globulin 3.8 g/dL (1.7-4.1); Glucose 125 mg/dL (80-110); HEMOLYSIS 22 (0-50); Lipase 96 U/L (23-300); Potassium 3.8 mmol/L (3.4-5.1); Sodium 142 mmol/L (137-145)
--- NOTE | 2018-05-24 01:37 | ED.CHESTPAIN ---
HPI - Chest Pain General Chief Complaint: Chest Pain Stated Complaint: heart is pounding, racing Time Seen by Provider: 05/24/18 01:15 Source: patient Mode of arrival: ambulatory History of Present Illness HPI narrative: patient is a 67-year-old male presents with heart palpitations. As he frequently has heart palpitations in fact he has an event monitor on his to help with diagnosis. He only gets palpitations at night the frequently wakes up in the middle of the night he comes to the emergency department. This time he also had 1 episode of diarrhea and felt like both arms were weak. His low symptoms were atypical for him. He denies any chest pain no shortness of breath no nausea vomiting no abdominal pain. No further episodes of diarrhea. He has had a sleep study. He said he used to have OS a however then he had nasal surgery he was retested and no longer has NEVILLE. he used to take Prilosec [id number] and he stopped taking it a long time ago, he has not had any kind of GI workup MD complaint: other ( palpitations) Related Data Home Medications Medication Instructions Recorded Confirmed carvedilol [Coreg] 3.125 mg PO Q DAY #0 08/03/17 01/12/18 diltiazem HCl [Cardizem LA] 0.5 tab PO BID #0 08/03/17 01/12/18 lisinopril 2 tab PO QPM #0 08/03/17 01/12/18 aspirin 81 mg tablet,delayed 81 mg PO QPM 12/29/17 01/12/18 release alprazolam [Xanax] 0.25 mg PO PRN PRN 01/12/18 01/12/18 doxazosin [Cardura] 8 tab PO QPM 01/12/18 01/12/18 diltiazem HCl 04/26/18 doxazosin 4 tab 04/26/18 Allergies Allergy/AdvReac Type Severity Reaction Status Date / Time Iodine and Iodide Containing Allergy Severe knocks Verified 04/26/18 22:46 Produc him out morphine [MORPHINE] Allergy Severe slows Verified 04/26/18 22:46 heart rate cimetidine Allergy Verified 04/26/18 22:46 Review of Systems Review of Systems GENERAL: Denies chills, fatigue, malaise, fever, sweats, travel HEENT: Denies sinus pain, ear pain, sore throat, difficulty swallowing, neck pain RESPIRATORY: Denies dyspnea, cough, wheezing, hemoptysis, sputum. CARDIOVASCULAR: the HPI GASTROINTESTINAL: diarrhea x1, see PI : Denies dysuria, frequency, incontinence, hematuria, urinary retention, flank pain. MUSCULOSKELETAL: Denies weakness, joint pain, or bony pain SKIN: No rash, no erythema, no pruritus NEUROLOGIC: Denies weakness, dizziness, headache, numbness, change in speech, confusion PSYCHIATRIC: No concerning psychosocial issues. 12 point review of systems is negative except for those stated above and HPI PFSH Medical History Chronic post-traumatic stress disorder (PTSD) (Acute) Coronary artery disease (Acute) Hypertension (Acute) Social History Smoking Status: Former smoker Exam Initial Vital Signs Initial Vital Signs: Vital Signs Pulse Rate 61 05/24/18 01:14 Respiratory Rate 16 05/24/18 01:14 Blood Pressure 159/97 H 05/24/18 01:14 Pulse Oximetry 96 05/24/18 01:14 GENERAL: alert pleasant middle-aged male HEENT: Head atraumatic,EOMI, pupils reactive, CARDIOVASCULAR: Regular rate and rhythm without murmurs, rubs or gallops. RESPIRATORY: Breath sounds equal bilaterally, no wheezes rales or rhonchi. ABDOMEN: Soft, nontender. Normoactive bowel sounds all 4 quadrants. No guarding or rebound. EXTREMITIES: Normal range of motion, no clubbing or edema. Neurovascularly intact NEUROLOGICAL: Alert and oriented x4.Normal gait and speech. SKIN: Warm, dry, no laceration, no petechiae, no rashes or lesions. Course Orders Ordered: ED Orders 05/24/18 EKG-12 Lead Stat 05/24/18 01:09 Complete Blood Count AUTO DIFF Stat Comprehensive Metabolic Panel Stat Lipase Stat Troponin & CK Cardiac Panel Stat 05/24/18 01:16 XR chest 1V Stat Vital Signs - 8 hr 05/24/18 01:14 05/24/18 01:16 Temperature 97.1 F L Pulse Rate 61 52 L Respiratory Rate 16 12 Blood Pressure 159/97 H 159/86 H Pulse Oximetry 96 96 MDM - Chest Pain Lab Data Attestation: I reviewed the patient's lab results. Result diagrams: 05/24/18 01:09 05/24/18 01:09 Lab Results 05/24/18 05/24/18 Range/Units 01: 01:09 WBC 10.6 (4.5-11.0) X10^3/uL RBC 5.25 (4.5-5.9) X10^6/uL Hgb 16.9 (13.5-17.5) g/dL Hct 48.9 (41-53) % MCV 93.1 (80-100) fL MCH 32.2 (26-34) PG MCHC 34.5 (30-36) % RDW 13.6 (11.6-14.8) % Plt Count 190 (150-400) X10^3/uL Neut % (Auto) 47.8 L (50-75) % Lymph % (Auto) 39.2 (25-40) % [place] % (Auto) 7.0 (3-14) % Eos % (Auto) 5.6 H (2-4) % Baso % (Auto) 0.4 (0-2) % Neut # (Auto) 5100 (7059-8040) /uL Lymph # (Auto) 4200 (0065-3428) /uL [place] # (Auto) 700 (0-900) /uL Eos # (Auto) 600 H (0-450) /uL Baso # (Auto) 0 (0-100) /uL Sodium 142 (137-145) mmol/L Potassium 3.8 (3.4-5.1) mmol/L Chloride 106 (98-107) mmol/L Carbon Dioxide 23 (22-32) mmol/L BUN 14 (9-20) mg/dL Creatinine 1.00 (0.66-1.25) mg/dL Estimated GFR > 60.0 (>60) mL/min BUN/Creatinine Ratio 14.0 (6-22) Glucose 125 H (80-110) mg/dL Calcium 9.2 (8.4-10.2) mg/dL Total Bilirubin 0.5 (0.2-1.3) mg/dL AST 30 (17-59) IU/L ALT 28 (21-72) IU/L Alkaline Phosphatase 101 (38-126) U/L Total Creatine Kinase 58 (55-170) U/L CK-MB (CK-2) TNP CK-MB (CK-2) Rel Index TNP Troponin I < 0.012 (0.01-0.034) ng/mL Total Protein 8.0 (6.3-8.2) g/dL Albumin 4.2 (3.5-5.0) g/dL Globulin 3.8 (1.7-4.1) g/dL Albumin/Globulin Ratio 1.1 (1.0-2.8) Lipase 96 (23-300) U/L Imaging Data Chest x-ray: Attestation: I personally reviewed and interpreted this imaging study as follows: My impression: no acute cardiopulmonary process ECG Data Attestation: I personally reviewed and interpreted this ECG as follows: Prior ECG tracings: available for review Interpretation: normal sinus rhythm rate [address] changes no T-wave inversions appear interval 253 similar to previous EKGs MDM Narrative Medical decision making narrative: the patient has an event monitor. He can follow up with his PCP. He has frequent episodes of heart palpitations. Discharge Plan Departure Patient Disposition: Home Clinical Impression: Palpitation Discharge Date/Time: 05/24/18 02:14 Interventions: ED Discharge Assessment Last Done: 05/24/18 01:16 Instructions: DI for Palpitations Activity Restrictions/Additional Instructions: *You have been diagnosed with palpitations *What to do: recommend taking antacid medication at night prior before going to bed. discuss with her doctors about event monitor have it evaluated with an OS of *Continue to take medications as directed omeprazole 40 mg at night before bed *Follow up with your primary care provider in 2-3 days *Return to ER if you should have chest pain and dizziness, lightheadedness palpitations any new, worsening or concerning symptoms Prescriptions: No Action aspirin [Adult Low Dose Aspirin] 81 mg tablet,delayed release (DR/EC) 81 mg PO QPM RF: 0 lisinopril 40 MG tablet 2 tab PO QPM Qty: 0 RF: 0 diltiazem HCl [Cardizem LA] 420 MG tablet extended release 24 hr 0.5 tab PO BID Qty: 0 RF: 0 carvedilol [Coreg] 3.125 MG tablet 3.125 mg PO Q DAY Qty: 0 RF: 0 alprazolam [Xanax] 0.5 mg Tablet 0.25 mg PO PRN PRN (Reason: Anxiety) RF: 0 doxazosin [Cardura] 2 mg Tablet 8 tab PO QPM RF: 0 diltiazem HCl 420 mg tablet extended release 24 hr RF: 0 doxazosin 2 mg tablet 4 tab RF: 0 Referrals: Gumaro Puckett MD [Primary Care Provider] -
[2018-05-24 01:41] LABS: Troponin I < 0.012 ng/mL (0.01-0.034)
== END 2018-05-24 02:14 | disposition home or self-care (01) ==
PROVIDERS: Emergency Provider Emergency Medicine; PCP Family Medicine
DX: R00.2 Palpitations (principal)
CPT/HCPCS: 36591; 71045; 80053; 82550; 83690; 84484; 85025; 93005; 93010; 99283; 99285

== ENCOUNTER 2018-06-06 00:44 | Emergency (ER) | payer OTHER, SELFPAY ==
[2018-06-06 00:55] VITALS: BP 164/89; PULSE 58; RESP 16; TEMP 36.2; O2SAT 96; BMI 35.2
== END 2018-06-06 01:38 | disposition left against medical advice (07) ==
PROVIDERS: PCP Family Medicine
DX: I10 Essential (primary) hypertension (principal)
CPT/HCPCS: 99281; 99282

== ENCOUNTER 2018-12-23 14:00 | Outpatient (RCR) | payer OTHER, SELFPAY | END 2018-12-24 12:00 | LOC: CAR 14:00 | PROVIDERS: PCP Family Medicine; Visit Provider Family Medicine | DX: I25.10 Atherosclerotic heart disease of native coronary artery without angina pectoris (principal) | CPT/HCPCS: 93798 ==

== ENCOUNTER 2019-04-24 17:08 | Emergency (ER) | payer OTHER, SELFPAY ==
[2019-04-24 17:15] VITALS: BP 177/85; PULSE 58; RESP 20; TEMP 36.7; O2SAT 96; BMI 34.7
--- NOTE | 2019-04-24 17:56 | DI.RAD.S_ITS ---
PROCEDURE: XR CHEST 1V INDICATIONS: elevated BP, hx cardiac dx TECHNIQUE: One view of the chest was acquired. COMPARISON: [facility], CR, XR CHEST 1V, 05/24/2018, 1:44. [facility], CR, XR CHEST 1V, 04/26/2018, 23:31. FINDINGS: Surgical changes and devices: None. Lungs and pleura: Lungs are clear except for previously present small bilateral calcified granulomas within the lung parenchyma. No pleural effusions or pneumothorax. Mediastinum: Mediastinal contours appear normal. Heart size is normal. Bones and chest wall: No suspicious bony lesions. Overlying soft tissues appear unremarkable. IMPRESSION: Old granulomatous disease, no sign of CHF or cardiomegaly. Dictated by: Emiliano Moe M.D. on 04/24/2019 at 18:58 Approved by: Emiliano Moe M.D. on 04/24/2019 at 18:59
[2019-04-24 18:00] VITALS: BP 150/72; PULSE 54; RESP 18; O2SAT 96
[2019-04-24 19:06] VITALS: BP 159/73; PULSE 56; RESP 17; O2SAT 96
[2019-04-24 19:09] LABS: Add Manual Diff / Slide Review NO; Basophils Absolute Auto 100 /uL (0-100); Basophils Percent Auto 1.5 % (0-2); Eosinophils Absolute Auto 300 /uL (0-450); Eosinophils Percent Auto 2.8 % (2-4); Hemoglobin 16.3 g/dL (13.5-17.5); Lymphocytes Absolute Auto 3200 /uL (1100-4500); Lymphocytes Percent Auto 31.4 % (25-40); Mean Corpuscular HGB Conc 34.6 % (30-36); Mean Corpuscular Hemoglobin 32.2 PG (26-34); Monocytes Absolute Auto 800 /uL (0-900); Monocytes Percent Auto 7.8 % (3-14); Neutrophils Absolute Auto 5700 /uL (1500-7000); Neutrophils Percent Auto 56.5 % (50-75); Platelet Count 193 X10^3/uL (150-400); Red Blood Cell Count 5.06 X10^6/uL (4.5-5.9); Red Cell Distribution Width 13.3 % (11.6-14.8); White Blood Cell Count 10.1 X10^3/uL (4.5-11.0)
[2019-04-24 19:23] LABS: Alanine Aminotransferase 22 IU/L (<50); Albumin 4.1 g/dL (3.5-5.0); Albumin Globulin Ratio 1.2 (1.0-2.8); Alkaline Phosphatase 97 U/L (38-126); Aspartate Aminotransferase 32 IU/L (17-59); BUN Creatinine Ratio 14.4 (6-22); Bilirubin Total 0.7 mg/dL (0.2-1.3); Blood Urea Nitrogen 13 mg/dL (9-20); Calcium 9.1 mg/dL (8.4-10.2); Carbon Dioxide 26 mmol/L (22-32); Chloride 102 mmol/L (98-107); Creatine Kinase 58 U/L (55-170); Estimated Glomerular Filt Rate > 60.0 mL/min (>60); Globulin 3.4 g/dL (1.7-4.1); Glucose 100 mg/dL (80-110); HEMOLYSIS < 15 (0-50); Lipase 130 U/L (23-300); Potassium 3.3 mmol/L (3.4-5.1); Sodium 138 mmol/L (137-145); Total Protein 7.5 g/dL (6.3-8.2)
--- NOTE | 2019-04-24 19:30 | ED_ITS ---
HPI - General Adult <CHERELLE Silver - Last Filed: 04/24/19 20:26> General Chief complaint: Hypertension Stated complaint: blood pressure is elevated Time Seen by Provider: 04/24/19 17:47 Source: patient Mode of arrival: Ambulatory Limitations: no limitations History of Present Illness HPI narrative: This is a 68-year-old gentleman, former smoker, who presents to ED with chief complain of elevated blood pressure for last 4 days. Patient states his taking several blood pressure medications current knee including dL T as am, lisinopril, carvedilol, doxazosin and last 2 days hydralazine has been added to this according to his primary care physician's assistant media buyer. Patient denies associated symptoms such as chest pain, breathing difficulty, dizziness, vision change or headaches. Patient states at times his blood pressure increases up to 200/100 at home but within in a hour period it decreases to 150s in systolic especially if the changes his position to sitting and standing. Patient also noticed having some chest and neck burning sensation had start taking Prilosec which resolved this symptoms. Patient has history of [place] in 1985 which resulted in angioplasty and had 2 cardiac stents in placed in 2011 in average. His staffing operations manager is Dr. Franks and has a follow-up appointment in 4 days and treadmill test has been scheduled in June 2019. Related Data Home Medications Medication Instructions Recorded Confirmed lisinopril 2 tab PO QPM #0 08/03/17 04/24/19 aspirin 81 mg tablet,delayed 81 mg PO QPM 12/29/17 04/24/19 release carvedilol 3.125 mg tablet 6.25 mg PO Q DAY #0 tab 04/24/19 04/24/19 diltiazem HCl 420 mg 420 mg PO DAILY #0 tab 04/24/19 04/24/19 tablet,extended release 24 hr doxazosin 2 mg tablet 8 mg PO QPM tab 04/24/19 04/24/19 hydralazine 04/24/19 isosorbide dinitrate 30 mg tablet 15 mg PO BID tab 04/24/19 04/24/19 Allergies Allergy/AdvReac Type Severity Reaction Status Date / Time Iodine and Iodide Containing Allergy Severe knocks Verified 04/24/19 15:41 Produc him out morphine [MORPHINE] Allergy Severe slows Verified 04/24/19 15:41 heart rate cimetidine Allergy Verified 04/24/19 15:41 Review of Systems <CHERELLE Silver - Last Filed: 04/24/19 20:26> Review of Systems Narrative: General: Denies fever, chills, fatigue, malaise, sweats. HEENT: Denies sinus pain, ear pain, sore throat, difficulty swallowing, dizziness. Respiratory: Denies dyspnea, cough, wheezing, hemoptysis, sputum. Cardiovascular: Reports elevated blood pressure for last 4 days. Denies chest pain, palpitations, orthopnea, edema. Gastrointestinal: Denies nausea, vomiting, abdominal pain, diarrhea, constipation, melena. : Denies dysuria, frequency, incontinence, hematuria, urinary retention. Musculoskeletal: Denies weakness, joint pain or bony pain. Skin: Denies rash, skin lesions, or other. Neurologic: Denies weakness, headache, numbness, change in speech, confusion, seizures, incoordination. Psychiatric: No concerning psychosocial issues. 12-point review of systems is negative except for those stated above. Patient History <CHERELLE Silver - Last Filed: 04/24/19 20:26> Medical History Chronic post-traumatic stress disorder (PTSD) (Acute) Coronary artery disease (Acute) Heart attack (Acute) Hypertension (Acute) Surgical History Coronary angioplasty status (Acute) H/O heart artery stent (Acute) Social History Smoking Status: Former smoker Smoking Status: Former smoker alcohol intake frequency: other Substance Use Type: does not use Exam <CHERELLE Silver - Last Filed: 04/24/19 20:26> Narrative Exam Narrative: GEN: Alert, oriented x 3, well appearing and nourished, and in no acute distress. Head: Normal cephalic, atraumatic. No scalp or temporal tenderness, palpable mass or rash. EYES: Pupils are equal, round, and reactive to light and accommodation. Extraocular muscles are intact bilaterally. There is no subconjunctival hemorrhage, exudate and sclera non-icteric. ENT: Bilateral auditory canals and tympanic membranes clear. Hearing grossly intact. Nose without bleeding, purulent discharge or deviation. Facial sinuses nontender to palpate. Mucous membrane moist, no mucosal lesion. Throat without erythema, tonsillar hypertrophy or exudate. Uvula in midline, airway patent. Neck: Trachea in midline. No JVD, non-tender without lymphadenopathy. No masses or thyroid megaly. Supple, non-tender and no meningeal signs. CARDIAC: Normal regular rate and rhythm without murmurs, gallops, or rubs. No chest wall tenderness. No peripheral edema, cyanosis or pallor. Capillary refill is less than 2 seconds. RESPIRATORY: Lungs are clear to auscultate bilaterally. No cough, wheezes, rales, or rhonchi. No stridor, respiratory distress, increase work of breathin g, or accessary muscle used. ABD: Abdomen soft, nontender and non-distended. No guarding or rebound tenderness to palpate. Bowel sounds are normal in all 4 quadrants. There is no palpable masses or organomegaly. EXT: Full painless ROM of all extremities with no loss of sensation, strength, effusion or edema. SKIN: Warm, dry, normal color for patient. No erythema, lesions or rash over visible areas. BACK: Nontender without deformity or crepitance. No flank tenderness. NEUROLOGICAL: Alert and oriented to place, time and person. Sensation and motor function intact bilaterally. No facial droops, dysphasia. PSYCHIATRIC: Good judgement and reason, without hallucinations, abnormal affect or abnormal behaviors during the examination. Initial Vital Signs Initial Vital Signs: Vital Signs Temperature 98.1 F 04/24/19 17:15 Pulse Rate 58 L 04/24/19 17:15 Respiratory Rate 20 04/24/19 17:15 Blood Pressure 177/85 H 04/24/19 17:15 Pulse Oximetry 96 04/24/19 17:15 <Alla Solano DO - Last Filed: 04/25/19 08:25> Initial Vital Signs Initial Vital Signs: Vital Signs Temperature 98.1 F 04/24/19 17:15 Pulse Rate 58 L 04/24/19 17:15 Respiratory Rate 20 04/24/19 17:15 Blood Pressure 177/85 H 04/24/19 17:15 Pulse Oximetry 96 04/24/19 17:15 Scores <Sterling [facility] TELEPHONE CLEANER - Last Filed: 04/24/19 20:26> GCS Kyrie coma scale eye opening: Spontaneous Kyrie coma scale verbal response: Orientated Kyrie coma scale motor response: Obey commands Kyrie coma scale total score: 15 HEART Score Heart Score history: Slightly Suspicious Heart Score EKG: Normal Heart Score Age: > or = 65 years old Heart Score risk factors: > 3 risk factors or hx of atherosclerotic disease Heart Score troponin: < or = to normal limit Heart Score Total: 4 Course <Sterling DayanaCHERELLE Escobar - Last Filed: 04/24/19 20:26> Orders Ordered: Discontinued Medications Potassium Chloride (Klor-Con M20) 40 meq PO NOW ONE Stop: 04/24/19 19:32 Last Admin: 04/24/19 20:08 Dose: 40 meq Documented by: RSTONE Vital Signs Vital signs: Vital Signs - 8 hr 04/24/19 17:15 04/24/19 18:00 04/24/19 19:06 Temperature 98.1 F Pulse Rate 58 L 54 L 56 L Respiratory Rate 20 18 17 Blood Pressure 177/85 H Blood Pressure [Left Arm] 150/72 H 159/73 H Pulse Oximetry 96 96 96 <Alla Solano DO - Last Filed: 04/25/19 08:25> Orders Ordered: Discontinued Medications Potassium Chloride (Klor-Con M20) 40 meq PO NOW ONE Stop: 04/24/19 19:32 Last Admin: 04/24/19 20:08 Dose: 40 meq Documented by: RSTONE Vital Signs Vital signs: Vital Signs - 8 hr 04/24/19 17:15 04/24/19 18:00 04/24/19 19:06 Temperature 98.1 F Pulse Rate 58 L 54 L 56 L Respiratory Rate 20 18 17 Blood Pressure 177/85 H Blood Pressure [Left Arm] 150/72 H 159/73 H Pulse Oximetry 96 96 96 Medical Decision Making <Sterling JacobsMindyCHERELLE rivers - Last Filed: 04/24/19 20:26> Differential Diagnosis Differential Diagnosis: uncontrolled HTN, STEMI, NSTEMI Medical Records Medical records reviewed: Yes I reviewed the patient's medical records. Lab Data Lab results reviewed: Yes I reviewed the patient's lab results. Result diagrams: 04/24/19 18:19 04/24/19 18:19 Labs: Lab Results 04/24/19 04/24/19 Range/Units 18:19 18:19 WBC 10.1 (4.5-11.0) X10^3/uL RBC 5.06 (4.5-5.9) X10^6/uL Hgb 16.3 (13.5-17.5) g/dL Hct 47.0 (41-53) % MCV 93.0 (80-100) fL MCH 32.2 (26-34) PG MCHC 34.6 (30-36) % RDW 13.3 (11.6-14.8) % Plt Count 193 (150-400) X10^3/uL Neut % (Auto) 56.5 (50-75) % Lymph % (Auto) 31.4 (25-40) % [place] % (Auto) 7.8 (3-14) % Eos % (Auto) 2.8 (2-4) % Baso % (Auto) 1.5 (0-2) % Neut # (Auto) 5700 (8490-9539) /uL Lymph # (Auto) 3200 (8139-0523) /uL [place] # (Auto) 800 (0-900) /uL Eos # (Auto) 300 (0-450) /uL Baso # (Auto) 100 (0-100) /uL Sodium 138 (137-145) mmol/L Potassium 3.3 L (3.4-5.1) mmol/L Chloride 102 (98-107) mmol/L Carbon Dioxide 26 (22-32) mmol/L BUN 13 (9-20) mg/dL Creatinine 0.90 (0.66-1.25) mg/dL Estimated GFR > 60.0 (>60) mL/min BUN/Creatinine Ratio 14.4 (6-22) Glucose 100 (80-110) mg/dL Calcium 9.1 (8.4-10.2) mg/dL Total Bilirubin 0.7 (0.2-1.3) mg/dL AST 32 (17-59) IU/L ALT 22 (<50) IU/L Alkaline Phosphatase 97 (38-126) U/L Total Creatine Kinase 58 (55-170) U/L CK-MB (CK-2) TNP CK-MB (CK-2) Rel Index TNP Troponin I < 0.012 (0.01-0.034) ng/mL Total Protein 7.5 (6.3-8.2) g/dL Albumin 4.1 (3.5-5.0) g/dL Globulin 3.4 (1.7-4.1) g/dL Albumin/Globulin Ratio 1.2 (1.0-2.8) Lipase 130 (23-300) U/L Imaging Data Chest x-ray: Radiologist's impression: [address] [address] XRay Report Signed Patient: Ozzy Dooley EMR#: [id number] : [id number]:[id number] Age/Sex: 68 / MDate of Service: 04/24/19 Loc: ED Accession Number: [id number] Procedure: XR chest 1V Ordering Provider: Sterling Ly PROCEDURE: XR CHEST 1V INDICATIONS: elevated BP, hx cardiac dx TECHNIQUE: One view of the chest was acquired. COMPARISON: [facility], CR, XR CHEST 1V, 05/24/2018, 1:44. [facility], CR, XR CHEST 1V, 04/26/2018, 23:31. FINDINGS: Surgical changes and devices: None. Lungs and pleura: Lungs are clear except for previously present small bilateral calcified granulomas within the lung parenchyma. No pleural effusions or pneumothorax. Mediastinum: Mediastinal contours appear normal. Heart size is normal. Bones and chest wall: No suspicious bony lesions. Overlying soft tissues appear unremarkable. IMPRESSION: Old granulomatous disease, no sign of CHF or cardiomegaly. Dictated by: Emiliano Moe M.D. on 04/24/2019 at 18:58 Approved by: Emiliano Moe M.D. on 04/24/2019 at 18:59 ECG Data Attestation: I personally reviewed and interpreted this ECG as follows: Prior ECG tracings: available for review Interpretation: Sinus rhythm with first-degree AV block rate at 61. Left AXIS Q-waves in V1 and V2 of indeterminate age. P are interval 230/QRS duration normal/ QT/QTC 424/428. NO significant changes from previous EKG MDM Narrative Medical decision making narrative: This is a 68-year-old gentleman who presents to ED with home elevated blood pressure at home readings last 4 days. Patient denies associated symptoms such as chest pain, breathing difficulty, dizziness, headache, vision change. Patient currently takes multiple blood pressure medications and new blood pressure medicine hydralazine has been added last 2 days. Patient had some burning sensation in epigastric and is throat area which he started taking Prilosec and helps with this symptoms. EKG without significant changes from previous one with first-degree AV block rate at 61 with old Q-waves in V1 and V2. Chest x-ray shows without changes from previous readings with small bilateral calcified granuloma within the lung parenchyma. Cardiac enzymes were negative. Potassium level was mildly low as 3.3 and this has been supplemented with 40 mEq of KCl prior discharged to home. Patient's blood pressure has been mostly reading as 150s/70s and upto 170's/80's. Patient continued to have no cardiac related symptoms. Patient already has scheduled appointment with staffing operations manager in 4 days and with his primary care physician for re-evaluation. Findings were discussed with the patient and patient verbalized understanding and return precautions were discussed. <Alla Solano, DO - Last Filed: 04/25/19 08:25> Lab Data Lab results reviewed: Yes I reviewed the patient's lab results. Labs: Lab Results 04/24/19 04/24/19 Range/Units 18:19 18:19 WBC 10.1 (4.5-11.0) X10^3/uL RBC 5.06 (4.5-5.9) X10^6/uL Hgb 16.3 (13.5-17.5) g/dL Hct 47.0 (41-53) % MCV 93.0 (80-100) fL MCH 32.2 (26-34) PG MCHC 34.6 (30-36) % RDW 13.3 (11.6-14.8) % Plt Count 193 (150-400) X10^3/uL Neut % (Auto) 56.5 (50-75) % Lymph % (Auto) 31.4 (25-40) % [place] % (Auto) 7.8 (3-14) % Eos % (Auto) 2.8 (2-4) % Baso % (Auto) 1.5 (0-2) % Neut # (Auto) 5700 (9318-0400) /uL Lymph # (Auto) 3200 (8207-6867) /uL [place] # (Auto) 800 (0-900) /uL Eos # (Auto) 300 (0-450) /uL Baso # (Auto) 100 (0-100) /uL Sodium 138 (137-145) mmol/L Potassium 3.3 L (3.4-5.1) mmol/L Chloride 102 (98-107) mmol/L Carbon Dioxide 26 (22-32) mmol/L BUN 13 (9-20) mg/dL Creatinine 0.90 (0.66-1.25) mg/dL Estimated GFR > 60.0 (>60) mL/min BUN/Creatinine Ratio 14.4 (6-22) Glucose 100 (80-110) mg/dL Calcium 9.1 (8.4-10.2) mg/dL Total Bilirubin 0.7 (0.2-1.3) mg/dL AST 32 (17-59) IU/L ALT 22 (<50) IU/L Alkaline Phosphatase 97 (38-126) U/L Total Creatine Kinase 58 (55-170) U/L CK-MB (CK-2) TNP CK-MB (CK-2) Rel Index TNP Troponin I < 0.012 (0.01-0.034) ng/mL Total Protein 7.5 (6.3-8.2) g/dL Albumin 4.1 (3.5-5.0) g/dL Globulin 3.4 (1.7-4.1) g/dL Albumin/Globulin Ratio 1.2 (1.0-2.8) Lipase 130 (23-300) U/L ECG Data Attestation: I personally reviewed and interpreted this ECG as follows: Prior ECG tracings: available for review Interpretation: Normal sinus rhythm rate 61 p.r. interval [address] elevation depression or T-wave inversions Discharge Plan Departure Patient Disposition: Home Clinical Impression: High blood pressure Qualifiers: Hypertension type: unspecified Qualified Code(s): I10 - Essential (primary) hypertension Discharge Date/Time: 04/24/19 20:17 Activity Restrictions/Additional Instructions: You have been diagnosed with [elevated blood pressure. Today's EKG w/o much changes from the previous one. CXR test shows bilateral calcified granuloma which you already knew. No signs of heart failure or cardiomegaly seen in Xray test today. Potassium was mildly low as 3.3 and you were provided with replacement of 40 mEq of potassium chloride in ED. cardiac enzymes were normal without elevation. Your blood pressure had decreased to 150/70's mostly in ED]. What to do: *Take your medications as directed. Please continue with your daily medications. *Follow up with your primary care provider in 2-3 days, call for an appointment. Please follow up with her primary care physician's appointment and staffing operations manager appointment as scheduled.Let them know you were seen in the ED and that we asked you to be seen in follow up. *Return to ED if you have any new, worsening, or concerning symptoms, such as [chest pain, breathing difficulty, weakness, feeling like fainting, severe headache, vision change, weakness to extremity, speech difficulty, problem with swallowing or any acute concerns]. Prescriptions: No Action aspirin [Adult Low Dose Aspirin] 81 mg tablet,delayed release (DR/EC) 81 mg PO QPM RF: 0 isosorbide dinitrate 30 mg tablet 15 mg PO BID RF: 0 lisinopril 40 MG tablet 2 tab PO QPM Qty: 0 RF: 0 carvedilol [Coreg] 3.125 mg tablet 6.25 mg PO Q DAY Qty: 0 RF: 0 diltiazem HCl [Cardizem LA] 420 mg tablet extended release 24 hr 420 mg PO DAILY Qty: 0 RF: 0 doxazosin [Cardura] 2 mg tablet 8 mg PO QPM RF: 0 hydralazine RF: 0 Referrals: Brian Franks MD [Non-Staff] - Gumaro Puckett MD [Primary Care Provider] -
[2019-04-24 19:32] LABS: Troponin I < 0.012 ng/mL (0.01-0.034)
[2019-04-24 19:40] VITALS: BP 155/81; PULSE 56; RESP 19; O2SAT 96
[2019-04-24] MEDS: POTASSIUM CHLORIDE 20 MEQ TAB 40 MEQ PO (20:08)
== END 2019-04-24 20:17 | disposition home or self-care (01) ==
PROVIDERS: Emergency Provider Nurse Practitioner Family; PCP Family Medicine
DX: I10 Essential (primary) hypertension (principal)
CPT/HCPCS: 36415; 71045; 80053; 82550; 83690; 84484; 85025; 93005; 93010; 99284; 99285

== ENCOUNTER → 2019-07-10 16:51 | Outpatient (CLI) | payer OTHER, SELFPAY ==
[2019-07-10 17:59] LABS: Influenza A - CEPHEID Flu A NEGATIVE (NEGATIVE); Influenza B - CEPHEID Flu B NEGATIVE (NEGATIVE)
== END ==
PROVIDERS: PCP Family Medicine; Visit Provider Physician Assistant
DX: R68.89 Other general symptoms and signs (principal)
CPT/HCPCS: 87502

== ENCOUNTER → 2019-07-14 19:17 | Outpatient (CLI) | payer OTHER, SELFPAY | PROVIDERS: PCP Family Medicine; Visit Provider Nurse Practitioner | DX: J02.9 Acute pharyngitis, unspecified (principal) | CPT/HCPCS: 87070 ==

== ENCOUNTER → 2019-11-21 14:55 | Outpatient (CLI) | payer OTHER, SELFPAY ==
[2019-11-22 16:08] LABS: COVID19 Sendout Not Detected (Not Detected)
== END ==
PROVIDERS: PCP Family Medicine; Visit Provider Nurse Practitioner
DX: Z11.59 Encounter for screening for other viral diseases (principal); J02.9 Acute pharyngitis, unspecified
CPT/HCPCS: 87070; 87635

== ENCOUNTER 2020-01-17 01:23 | Emergency (ER) | payer OTHER, SELFPAY ==
[2020-01-17 01:30] VITALS: BP 179/105; PULSE 87; RESP 18; O2SAT 92; BMI 33.9
--- NOTE | 2020-01-17 01:44 | ED_ITS ---
HPI - General Adult General Chief complaint: Dizziness Stated complaint: SOB, LEFT ARM NUMB, THINKS STROKE Time Seen by Provider: 01/17/20 01:25 Source: patient Mode of arrival: Ambulatory Limitations: no limitations History of Present Illness HPI narrative: 69-year-old male with history of coronary artery disease and hypertension and PTSD/anxiety is here for evaluation of multiple symptoms. Patient states that for the past couple weeks he has noticed that when he wakes up from sleeping whether that is sleeping at night or if he naps during the day that he feels like he is ?sinking into the bed ?and has problems moving his arms. This does cause him some anxiety. Despite the chief complaint of shortness of breath patient states that he is not having shortness of breath. States he is not having any chest pain. He states that the issues with his arms only lasts seconds or potentially just a few short minutes. And then the symptoms completely resolved. He states that over the past several weeks he has also felt somewhat fatigued. He took his heart rate at 1 point during this time and he states that the heart rate was in the 40s. He stop taking his carvedilol and his diltiazem which he states has increased his heart rate. Reason he came in this evening was that he was concerned that he is potentially having a stroke. The time my evaluation patient was completely asymptomatic. Related Data Home Medications Medication Instructions Recorded Confirmed lisinopril 2 tab PO QPM #0 08/03/17 11/21/19 aspirin 81 mg tablet,delayed 81 mg PO QPM 12/29/17 11/21/19 release carvedilol 3.125 mg tablet 6.25 mg PO Q DAY #0 tab 04/24/19 11/21/19 doxazosin 2 mg tablet 8 mg PO QPM tab 04/24/19 11/21/19 hydralazine 04/24/19 11/21/19 isosorbide dinitrate 30 mg tablet 15 mg PO BID tab 04/24/19 11/21/19 diltiazem HCl 420 mg 240 mg PO DAILY #0 tab 07/10/19 11/21/19 tablet,extended release 24 hr Previous Rx's Medication Instructions Recorded fluticasone propionate 50 1 spray NASAL BID #15.8 ml 07/14/19 mcg/actuation nasal spray,suspension erythromycin 5 mg/gram (0.5 %) eye 1 cm EYE-BOTH TID #1 gram 11/02/19 ointment Allergies Allergy/AdvReac Type Severity Reaction Status Date / Time Iodine and Iodide Containing Allergy Severe knocks Verified 11/21/19 14:43 Produc him out morphine [MORPHINE] Allergy Severe slows Verified 11/21/19 14:43 heart rate cimetidine Allergy Verified 11/21/19 14:43 Review of Systems Constitutional Constitutional: Denies fever(s) and Reports weakness ENT Ears, Nose, Mouth, and Throat: Denies vertigo Cardiovascular Cardiovascular: Denies chest pain and Denies dyspnea Respiratory Respiratory: Denies dyspnea Gastrointestinal Gastrointestinal: Denies abdominal pain, Denies nausea and Denies vomiting Musculoskeletal Comments: Bilateral arm weakness Integumentary/Breasts Skin/Breast: Denies lesions and Denies rash Neurologic Neurologic: Denies confusion, Denies vertigo and Reports weakness Psychiatric Psychiatric: Denies confusion Hematologic/Lymphatic Hematologic/Lymphatic: Denies easy bleeding and Denies easy bruising Allergic/Immunologic Allergic/Immunologic: Denies urticaria Patient History Medical History Chronic post-traumatic stress disorder (PTSD) (Acute) Coronary artery disease (Acute) Heart attack (Acute) Hypertension (Acute) Surgical History Coronary angioplasty status (Acute) H/O heart artery stent (Acute) Social History Smoking Status: Former smoker Smoking Status: Former smoker alcohol intake frequency: other Substance Use Type: does not use Exam Initial Vital Signs Initial Vital Signs: Vital Signs Pulse Rate 87 01/17/20 01:30 Respiratory Rate 18 01/17/20 01:30 Blood Pressure 179/105 H 01/17/20 01:30 Pulse Oximetry 92 01/17/20 01:30 Const General: cooperative and comfortable Limitations: mental status not altered HENMT Head: normal to inspection and normocephalic Resp Effort & Inspection: normal respiratory effort Auscultation: clear to auscultation bilaterally Cardio Rate: regular rate Rhythm: regular rhythm Skin Lesions: no lesions Rashes: no rashes Neuro General: patient alert, patient awake and patient oriented x3 Cognition: normal cognition Speech: speech normal Gait: normal gait Motor: muscle tone normal throughout Sensory Exam: no sensory deficits noted Extrem General: normal to inspection and capillary refill normal Psych Appearance: grossly normal and well kempt Scores GCS Kyrie coma scale eye opening: Spontaneous Kyrie coma scale verbal response: Orientated [place] coma scale motor response: Obey commands Kyrie coma scale total score: 15 Course Orders Ordered: ED Orders 01/17/20 01:27 EKG-12 Lead Stat 01/17/20 01:35 Complete Blood Count AUTO DIFF Stat Comprehensive Metabolic Panel Stat Lipase Stat Partial Thromboplastin Time Stat Prothrombin Time INR Stat Troponin & CK Cardiac Panel Stat Vital Signs Vital signs: Vital Signs - 8 hr 01/17/20 01:30 01/17/20 02:57 Pulse Rate 87 54 L Respiratory Rate 18 16 Blood Pressure 179/105 H 161/81 H Pulse Oximetry 92 94 Medical Decision Making Lab Data Lab results reviewed: Yes I reviewed the patient's lab results. Result diagrams: 01/17/20 01:35 01/17/20 01:35 Labs: Lab Results 01/17/20 01/17/20 01/17/20 Range/Units 01:35 01:35 01:35 WBC 12.4 H (4.5-11.0) X10^3/uL RBC 5.61 (4.5-5.9) X10^6/uL Hgb 17.5 (13.5-17.5) g/dL Hct 51.6 (41-53) % MCV 91.9 (80-100) fL MCH 31.2 (26-34) PG MCHC 33.9 (30-36) % RDW 13.3 (11.6-14.8) % Plt Count 232 (150-400) X10^3/uL Neut % (Auto) 50.5 (50-75) % Lymph % (Auto) 37.0 (25-40) % Letcher % (Auto) 8.2 (3-14) % Eos % (Auto) 3.4 (2-4) % Baso % (Auto) 0.9 (0-2) % Neut # (Auto) 6300 (4782-7323) /uL Lymph # (Auto) 4600 H (2357-9201) /uL Letcher # (Auto) 1000 H (0-900) /uL Eos # (Auto) 400 (0-450) /uL Baso # (Auto) 100 (0-100) /uL Total Counted Cancelled Seg Neutrophils % Cancelled Band Neutrophils % Cancelled Lymphocytes % (Manual) Cancelled Atypical Lymphs % Cancelled Monocytes % (Manual) Cancelled Eosinophils % (Manual) Cancelled Basophils % (Manual) Cancelled Metamyelocytes % Cancelled Myelocytes % Cancelled Promyelocytes % Cancelled Blast Cells % Cancelled Neutrophils # (Manual) Cancelled Nucleated RBCs Cancelled Differential Comment Cancelled Hypersegmented Neuts Cancelled Hypogranular Neuts Cancelled Reactive Lymphocytes Cancelled Plasma Cells Cancelled Smudge Cells Cancelled Other Cell Type Cancelled Toxic Granulation Cancelled Toxic Vacuolation Cancelled Dohle Bodies Cancelled Migue Rods Cancelled WBC Morphology Comment Cancelled Platelet Estimate Cancelled Clumped Platelets Cancelled Plt Morphology Comment Cancelled RBC Morphology Cancelled Dimorphic RBCs Cancelled Polychromasia Cancelled Hypochromasia Cancelled Poikilocytosis Cancelled Basophilic Stippling Cancelled Anisocytosis Cancelled Microcytosis Cancelled Macrocytosis Cancelled Spherocytes Cancelled Pappenheimer Bodies Cancelled Sickle Cells Cancelled Target Cells Cancelled Tear Drop Cells Cancelled Ovalocytes Cancelled Stomatocytes Cancelled Helmet Cells Cancelled [place] Bodies Cancelled [place] Rings Cancelled [place] Cells Cancelled Acanthocytes (Spur) Cancelled Rouleaux Cancelled Schistocytes Cancelled PT 12.8 H (10.1-12.7) SECONDS INR 1.1 (0.9-1.3) APTT 35 (26.4-36.2) SECONDS Sodium (137-145) mmol/L Potassium (3.4-5.1) mmol/L Chloride (98-107) mmol/L Carbon Dioxide (22-32) mmol/L BUN (9-20) mg/dL Creatinine (0.66-1.25) mg/dL Estimated GFR (>60) mL/min BUN/Creatinine Ratio (6-22) Glucose (80-110) mg/dL Calcium (8.4-10.2) mg/dL Total Bilirubin (0.2-1.3) mg/dL AST (17-59) IU/L ALT (<50) IU/L Alkaline Phosphatase (38-126) U/L Total Creatine Kinase 64 (55-170) U/L CK-MB (CK-2) TNP CK-MB (CK-2) Rel Index TNP Troponin I < 0.012 (0.01-0.034) ng/mL Total Protein (6.3-8.2) g/dL Albumin (3.5-5.0) g/dL Globulin (1.7-4.1) g/dL Albumin/Globulin Ratio (1.0-2.8) Lipase 150 (23-300) U/L 01/17/20 Range/Units 01:35 WBC (4.5-11.0) X10^3/uL RBC (4.5-5.9) X10^6/uL Hgb (13.5-17.5) g/dL Hct (41-53) % MCV (80-100) fL MCH (26-34) PG MCHC (30-36) % RDW (11.6-14.8) % Plt Count (150-400) X10^3/uL Neut % (Auto) (50-75) % Lymph % (Auto) (25-40) % Letcher % (Auto) (3-14) % Eos % (Auto) (2-4) % Baso % (Auto) (0-2) % Neut # (Auto) (4877-7170) /uL Lymph # (Auto) (6846-7202) /uL Letcher # (Auto) (0-900) /uL Eos # (Auto) (0-450) /uL Baso # (Auto) (0-100) /uL Total Counted Seg Neutrophils % Band Neutrophils % Lymphocytes % (Manual) Atypical Lymphs % Monocytes % (Manual) Eosinophils % (Manual) Basophils % (Manual) Metamyelocytes % Myelocytes % Promyelocytes % Blast Cells % Neutrophils # (Manual) Nucleated RBCs Differential Comment Hypersegmented Neuts Hypogranular Neuts Reactive Lymphocytes Plasma Cells Smudge Cells Other Cell Type Toxic Granulation Toxic Vacuolation Dohle Bodies M[place] Rods WBC Morphology Comment Platelet Estimate Clumped Platelets Plt Morphology Comment RBC Morphology Dimorphic RBCs Polychromasia Hypochromasia Poikilocytosis Basophilic Stippling Anisocytosis Microcytosis Macrocytosis Spherocytes Pappenheimer Bodies Sickle Cells Target Cells Tear Drop Cells Ovalocytes Stomatocytes Helmet Cells [place]don-[place] Bodies [place] Rings [place] Cells Acanthocytes (Spur) Rouleaux Schistocytes PT (10.1-12.7) SECONDS INR (0.9-1.3) APTT (26.4-36.2) SECONDS Sodium 139 (137-145) mmol/L Potassium 4.0 (3.4-5.1) mmol/L Chloride 102 (98-107) mmol/L Carbon Dioxide 28 (22-32) mmol/L BUN 14 (9-20) mg/dL Creatinine 1.18 (0.66-1.25) mg/dL Estimated GFR > 60.0 (>60) mL/min BUN/Creatinine Ratio 11.9 (6-22) Glucose 124 H (80-110) mg/dL Calcium 9.7 (8.4-10.2) mg/dL Total Bilirubin 0.8 (0.2-1.3) mg/dL AST 33 (17-59) IU/L ALT 26 (<50) IU/L Alkaline Phosphatase 88 (38-126) U/L Total Creatine Kinase (55-170) U/L CK-MB (CK-2) CK-MB (CK-2) Rel Index Troponin I (0.01-0.034) ng/mL Total Protein 8.0 (6.3-8.2) g/dL Albumin 4.4 (3.5-5.0) g/dL Globulin 3.6 (1.7-4.1) g/dL Albumin/Globulin Ratio 1.2 (1.0-2.8) Lipase (23-300) U/L ECG Data Attestation: I personally reviewed and interpreted this ECG as follows: Prior ECG tracings: not available for review Interpretation: Sinus rhythm Ventricular rate is 63 First degree AV block with a p.r. interval 238 milliseconds Normal QRS Normal QTC Occasional PVC Nonspecific ST T wave changes MDM Narrative Medical decision making narrative: Patient asymptomatic at the time of my evaluation. He denied any chest pain or shortness of breath. He does admit that potentially his symptoms are related to his PTSD and anxiety. The symptoms that he came in for today are not new today. They have been happening for the past couple weeks. He states that it only happens when he is waking from sleep. It is never happened during the day when he is walking around. I do have low suspicion for CVA given his history and physical exam. Low suspicion for ACS is the cause of his symptoms. I did discuss this with the patient. I did inform him that he needs to talk with his dual hose cementer regarding his blood pressure medications and advised him that he should avoid making changes to his medications on his own without talk with his primary provider. He states he is going to contact his primary provider tomorrow for a follow-up. He was given return precautions and follow-up instructions. He expressed understanding and agreement. Discharge Plan Departure Patient Disposition: Home Clinical Impression: High blood pressure Qualifiers: Hypertension type: unspecified Qualified Code(s): I10 - Essential (primary) hypertension Discharge Date/Time: 01/17/20 02:58 Instructions: DI for High Blood Pressure Activity Restrictions/Additional Instructions: It is important that you continue all of your medications as directed. I do recommend that tomorrow you contact your dual hose cementer for follow-up. Return to the emergency department for any new or worsening symptoms Prescriptions: No Action aspirin [Adult Low Dose Aspirin] 81 mg tablet,delayed release (DR/EC) 81 mg PO QPM RF: 0 isosorbide dinitrate 30 mg tablet 15 mg PO BID RF: 0 fluticasone propionate [Flonase Allergy Relief] 50 mcg/actuation spray,suspension 1 spray NASAL BID Qty: 15.8 RF: 0 erythromycin 5 mg/gram (0.5 %) ointment 1 cm EYE-BOTH TID Qty: 1 RF: 0 lisinopril 40 MG tablet 2 tab PO QPM Qty: 0 RF: 0 carvedilol [Coreg] 3.125 mg tablet 6.25 mg PO Q DAY Qty: 0 RF: 0 diltiazem HCl [Cardizem LA] 420 mg tablet extended release 24 hr 240 mg PO DAILY Qty: 0 RF: 0 doxazosin [Cardura] 2 mg tablet 8 mg PO QPM RF: 0 hydralazine RF: 0 Referrals: Gumaro Puckett MD [Primary Care Provider] -
[2020-01-17 01:54] LABS: Add Manual Diff / Slide Review NO; Basophils Absolute Auto 100 /uL (0-100); Basophils Percent Auto 0.9 % (0-2); Eosinophils Absolute Auto 400 /uL (0-450); Eosinophils Percent Auto 3.4 % (2-4); Hematocrit 51.6 % (41-53); Hemoglobin 17.5 g/dL (13.5-17.5); INR 1.1 (0.9-1.3); Lymphocytes Absolute Auto 4600 /uL (1100-4500); Mean Corpuscular HGB Conc 33.9 % (30-36); Mean Corpuscular Hemoglobin 31.2 PG (26-34); Mean Corpuscular Volume 91.9 fL (80-100); Monocytes Absolute Auto 1000 /uL (0-900); Monocytes Percent Auto 8.2 % (3-14); Neutrophils Absolute Auto 6300 /uL (1500-7000); Neutrophils Percent Auto 50.5 % (50-75); Platelet Count 232 X10^3/uL (150-400); Prothrombin Time 12.8 SECONDS (10.1-12.7); Red Blood Cell Count 5.61 X10^6/uL (4.5-5.9); Red Cell Distribution Width 13.3 % (11.6-14.8); White Blood Cell Count 12.4 X10^3/uL (4.5-11.0)
[2020-01-17 01:56] LABS: Creatine Kinase 64 U/L (55-170); Lipase 150 U/L (23-300); PTT Partial Thromboplastin Tim 35 SECONDS (26.4-36.2)
[2020-01-17 02:09] LABS: Troponin I < 0.012 ng/mL (0.01-0.034)
[2020-01-17 02:14] LABS: Alanine Aminotransferase 26 IU/L (<50); Albumin 4.4 g/dL (3.5-5.0); Albumin Globulin Ratio 1.2 (1.0-2.8); Alkaline Phosphatase 88 U/L (38-126); Aspartate Aminotransferase 33 IU/L (17-59); BUN Creatinine Ratio 11.9 (6-22); Bilirubin Total 0.8 mg/dL (0.2-1.3); Blood Urea Nitrogen 14 mg/dL (9-20); Calcium 9.7 mg/dL (8.4-10.2); Carbon Dioxide 28 mmol/L (22-32); Chloride 102 mmol/L (98-107); Estimated Glomerular Filt Rate > 60.0 mL/min (>60); Globulin 3.6 g/dL (1.7-4.1); Glucose 124 mg/dL (80-110); HEMOLYSIS < 15 (0-50); Sodium 139 mmol/L (137-145)
[2020-01-17 02:57] VITALS: BP 161/81; PULSE 54; RESP 16; O2SAT 94
== END 2020-01-17 02:58 | disposition home or self-care (01) ==
PROVIDERS: Emergency Provider Emergency Medicine; PCP Family Medicine
DX: I10 Essential (primary) hypertension (principal); R20.0 Anesthesia of skin; F43.10 Post-traumatic stress disorder, unspecified
CPT/HCPCS: 36415; 80053; 82550; 83690; 84484; 85025; 85610; 85730; 93005; 93010; 99283; 99284

== ENCOUNTER 2021-05-09 12:18 | Emergency (ER) | payer OTHER, SELFPAY ==
[2021-05-09] VITALS (35 sets, daily range): BP systolic 149–189; BP diastolic 72–111; PULSE 53–82; RESP 14–43; TEMP 36; O2SAT 91–96
--- NOTE | 2021-05-09 12:25 | DI.CT.S_ITS ---
PROCEDURE: CT STROKE INDICATIONS: Slurred speech. Right-sided weakness. TECHNIQUE: Noncontrast 4.5 mm thick angled axial sections acquired from the foramen magnum to the vertex, with coronal reformats. For radiation dose reduction, the following was used: automated exposure control, adjustment of mA and/or kV according to patient size. COMPARISON: None. FINDINGS: Image quality: Excellent. CSF spaces: Basal cisterns are patent. No extra-axial fluid collections. Ventricles are somewhat prominent size. Brain: No midline shift. No intracranial masses or hemorrhage. No area of hypodensity in a large vascular distribution to suggest acute infarction. Periventricular hypodensity consistent with chronic microvascular ischemic change. Age-related parenchymal loss. Skull and face: Calvarium and visualized facial bones are intact, without suspicious lesions. Sinuses: Maxillary and ethmoid mucosal thickening. The frontal sinuses are clear. Sphenoid sinuses appear clear. Mastoids are clear. IMPRESSION: No acute intracranial abnormality demonstrated. No acute intracranial hemorrhage. Chronic microvascular ischemic disease. Comment: Findings were discussed with Luis Armando Sanders at the time of dictation. This study fulfills neurological imaging criteria for inclusion or exclusion of acute stroke therapies based on available published neurological imaging guidelines. Dictated by: Demian Farias M.D. on 05/09/2021 at 12:34 Approved by: Demian Farias M.D. on 05/09/2021 at 12:37
--- NOTE | 2021-05-09 12:39 | ED.NEUROSD ---
HPI - Neuro Symptoms/Deficit General Chief Complaint: Neuro Symptoms/Deficit Stated Complaint: CVA Time Seen by Provider: 05/09/21 12:25 Source: patient and EMS Mode of arrival: EMS Limitations: altered mental status History of Present Illness HPI Narrative: The patient was oriented answered is his own historian. He reports right-sided weakness starting about 9:00 a.m. this morning. He had right facial, right upper extremity and right lower extremity weakness. He had garbled speech. He did not call EMS and about 3 hours later. Paramedics reported dense right weakness. The patient was taken straight to the CT room, where I initially assessed him. He was oriented, speaking almost clearly, and had full motion of his right arm. Upon return to his room in the ER, he had significant right facial drooping as well as complete paralysis to the right arm. Dysarthria had worsen. He has no headache. He complains of no numbness, no visual changes. He does not feel confused. He has a history of TIA about 3 years ago. He has hypertension and history of CAD. He is not diabetic. He takes aspirin, no blood thinners. He denies recent illness or injury. Related Data Home Medications Medication Instructions Recorded Confirmed lisinopril 40 mg tablet 2 tab PO QPM #0 08/03/17 10/30/20 aspirin 81 mg tablet,delayed 81 mg PO QPM 12/29/17 10/30/20 release (Adult Low Dose Aspirin) carvedilol 3.125 mg tablet (Coreg) 6.25 mg PO Q DAY #0 tab 04/24/19 10/30/20 doxazosin 2 mg tablet (Cardura) 8 mg PO QPM tab 04/24/19 10/30/20 hydralazine 04/24/19 10/30/20 isosorbide dinitrate 30 mg tablet 15 mg PO BID tab 04/24/19 10/30/20 diltiazem HCl 420 mg 240 mg PO DAILY #0 tab 07/10/19 10/30/20 tablet,extended release 24 hr (Cardizem LA) Previous Rx's Medication Instructions Recorded fluticasone propionate 50 1 spray NASAL BID #15.8 ml 07/14/19 mcg/actuation nasal spray,suspension (Flonase Allergy Relief) erythromycin 5 mg/gram (0.5 %) eye 1 cm EYE-BOTH TID #1 gram 10/30/20 ointment Allergies Allergy/AdvReac Type Severity Reaction Status Date / Time Iodine and Iodide Containing Allergy Severe knocks Verified 10/30/20 13:45 Produc him out morphine [MORPHINE] Allergy Severe slows Verified 10/30/20 13:45 heart rate cimetidine Allergy Verified 10/30/20 13:45 Review of Systems Review of Systems Narrative: The patient has significant dysarthria, communication is limited. I have no RS of the noted HPI. Patient History Medical History (Updated 05/09/21 @ 19:35 by Luis Armando Sanders MD) Blepharitis Chronic post-traumatic stress disorder (PTSD) Coronary artery disease Heart attack History of TIA (transient ischemic attack) Hypertension Surgical History Coronary angioplasty status H/O heart artery stent Social History Smoking Status: Former smoker Smoking Status: Former smoker alcohol intake frequency: other Substance Use Type: does not use Exam Initial Vital Signs Initial Vital Signs: Vital Signs Pulse Rate 56 L 05/09/21 12:36 Respiratory Rate 25 H 05/09/21 12:36 Const General: cooperative, No in distress and ill appearing Limitations: mental status not altered HENWA Head: other ( Right facial droop, otherwise normocephalic.) Mouth: oral mucosae normal and tongue normal Throat: posterior oropharynx normal and other ( I suspect diminished gag reflex.) Eyes General: appearance normal, both eyes and all related structures Conjunctivae: conjunctivae normal Pupils: PERRL EOM: EOM intact bilaterally Other: No visual field cut is detected Neck Neck: No JVD and other ( no bruit) Thyroid: thyroid normal Chest Chest: normal inspection of the chest Resp Effort & Inspection: normal respiratory effort Auscultation: clear to auscultation bilaterally Cardio Rate: regular rate Rhythm: regular rhythm Heart Sounds: S1 normal, S2 normal and no murmurs GI Inspection: normal to inspection Palpation: soft, No mass and No tender Auscultation: normal bowel sounds Back/Spine/Pelvis Back: normal to inspection Skin General: no rashes or lesions noted Neuro General: patient alert, patient awake and patient oriented x3 Other: garbled speech. Right facial droop. Right arm paralysis. Right leg weakness. Two point discrimination is intact. Sensory exam is intact. NIHSS testing was performed with the assistance of his nurse. His initial score is 11. Extrem General: normal to inspection and full ROM Other: Right hip tenderness without obvious deformity. Psych Appearance: disheveled Speech and Movement: other ( Garbled speech.) Course Course Course Narrative: The patient presented with acute stroke with right-sided deficits. NIHSS on initial evaluation was 11. Head CT was clear. The patient met criteria for tPA. Stroke Neurology, Dr. Salazar, with [facility] was consulted. He agreed with the treatment. tPA was given per protocol. There were no obvious ill effects from the tPA. Patient received Solu-Medrol and Benadryl prior to a CTA of the head and neck due to his medical record history indicating a history of iodine allergy. The patient is unaware of an iodine allergy. CTA of the head neck revealed no acute vascular lesions. The scan was reviewed with Dr. Salazar at [facility]. Unfortunately, given the current hospital bed crisis, [facility] was unable to receive the patient. [facility] also was unable to help. Dr. Teague, neurointensivist with [facility] was consulted. She has agreed to receive the patient in transfer. The patient has hypertension, systolic blood pressure 170 is on 80s. He was found to be COVID positive. He has no respiratory distress. Right hip pain was evaluated with x-ray, no fracture is seen. Although motion was limited, he was using his right hand prior to Transfer Orders Ordered: ED Orders 05/09/21 12:15 Basic Metabolic Panel Stat Complete Blood Count AUTO DIFF Stat 05/09/21 12:25 CT Stroke Stat EKG-12 Lead Stat 05/09/21 13:04 CT angio head and neck Stat 05/09/21 13:19 COVID19 -Nasal swab/Pre-Proc Stat 05/09/21 14:36 Urinalysis and Microscopic Stat Urine Culture Stat Urine Drug Screen, Rapid Stat 05/09/21 14:37 XR hip w pel if done RT 2V Stat 05/09/21 15:46 CXR [XR chest 1V] Stat Sodium Chloride (Normal Saline 0.9%) 1,000 mls @ 150 mls/hr IV CONT ASPEN Last Infusion: 05/09/21 18:20 Dose: 0 mls/hr Documented by: Admin: 05/09/21 14:31 Dose: 150 mls/hr Documented by: BRYAN POTASSIUM CHLORIDE IN WATER (Potassium Cl 10 Meq/100 Ml Aminata) 10 meq in 100 mls @ 100 mls/hr IV Q1H ASPEN Stop: 05/09/21 20:29 Last Infusion: 05/09/21 18:20 Dose: 0 mls/hr Documented by: Infusion: 05/09/21 18:20 Dose: 0 mls/hr Documented by: Admin: 05/09/21 17:47 Dose: 100 mls/hr Documented by: BRYAN Discontinued Medications Diphenhydramine HCl (Diphenhydramine 50 Mg/Ml Vial) 50 mg IV NOW ONE Stop: 05/09/21 13:07 Last Admin: 05/09/21 13:13 Dose: 50 mg Documented by: BRYAN Alteplase, Recombinant (Activase) 9 mg in 9 mls @ 540 mls/hr IV NOW ONE Stop: 05/09/21 13:03 Last Infusion: 05/09/21 12:59 Dose: 0 mls/hr Documented by: Admin: 05/09/21 12:56 Dose: 540 mls/hr Documented by: BRYAN Alteplase, Recombinant (Activase) 81 mg in 81 mls @ 81 mls/hr IV NOW ONE Stop: 05/09/21 14:01 Last Infusion: 05/09/21 14:00 Dose: 0 mls/hr Documented by: Admin: 05/09/21 13:00 Dose: 81 mls/hr Documented by: BRYAN Labetalol HCl (Labetalol 20 Mg/4 Ml Syringe) 10 mg IV NOW ONE Stop: 05/09/21 12:48 Last Admin: 05/09/21 18:21 Dose: Not Given Documented by: BRYAN Methylprednisolone (Methylprednisolone 125 Mg/2 Ml Vial) 125 mg IV NOW ONE Stop: 05/09/21 13:10 Last Admin: 05/09/21 13:13 Dose: 125 mg Documented by: BRYAN Vital Signs Vital signs: Vital Signs - 8 hr 05/09/21 12:36 05/09/21 12:37 05/09/21 12:42 Temperature 96.8 F L Pulse Rate 56 L 58 L 58 L Respiratory Rate 25 H 19 18 Blood Pressure 178/96 H 178/96 H Pulse Oximetry 95 96 05/09/21 12:45 05/09/21 12:51 05/09/21 13:00 Temperature Pulse Rate 59 L 59 L 55 L Respiratory Rate 25 H 15 25 H Blood Pressure 180/102 H 181/99 H 157/76 H Pulse Oximetry 95 94 93 05/09/21 13:05 05/09/21 13:10 05/09/21 13:15 Temperature Pulse Rate 54 L 53 L 57 L Respiratory Rate 26 H 27 H 25 H Blood Pressure 152/87 H 149/88 H 155/86 H Pulse Oximetry 94 93 93 05/09/21 13:20 05/09/21 13:26 05/09/21 13:30 Temperature Pulse Rate 58 L 61 62 Respiratory Rate 24 30 H 25 H Blood Pressure 164/79 H 154/72 H Pulse Oximetry 93 92 93 05/09/21 13:31 05/09/21 13:46 05/09/21 14:00 Temperature Pulse Rate 63 64 74 Respiratory Rate 22 27 H 33 H Blood Pressure 174/81 H 156/81 H Pulse Oximetry 94 93 93 05/09/21 14:03 05/09/21 14:17 05/09/21 14:30 Temperature Pulse Rate 76 71 70 Respiratory Rate 31 H 29 H 24 Blood Pressure 152/88 H 183/84 H 168/83 H Pulse Oximetry 93 94 93 05/09/21 14:45 05/09/21 15:00 05/09/21 15:15 Temperature Pulse Rate 69 73 74 Respiratory Rate 30 H 27 H 22 Blood Pressure 179/92 H 189/98 H 188/97 H Pulse Oximetry 94 94 93 05/09/21 15:30 05/09/21 15:45 05/09/21 16:00 Temperature Pulse Rate 65 77 65 Respiratory Rate 25 H 31 H 43 H Blood Pressure 187/96 H 180/86 H 163/90 H Pulse Oximetry 91 92 94 05/09/21 16:15 05/09/21 16:20 05/09/21 16:25 Temperature Pulse Rate 74 78 76 Respiratory Rate 28 H 29 H 23 Blood Pressure 188/101 H Pulse Oximetry 91 92 94 05/09/21 16:30 05/09/21 16:35 05/09/21 16:54 Temperature Pulse Rate 77 59 L Respiratory Rate 21 16 Blood Pressure 189/111 H Pulse Oximetry 93 05/09/21 17:00 05/09/21 17:05 05/09/21 17:10 Temperature Pulse Rate 74 73 66 Respiratory Rate 21 15 19 Blood Pressure 176/110 H Pulse Oximetry 92 91 93 05/09/21 17:15 05/09/21 17:50 Temperature Pulse Rate 67 82 Respiratory Rate 14 16 Blood Pressure 175/107 H Pulse Oximetry 91 93 MDM - Neuro Symptoms/Deficit Lab Data Result diagrams: 05/09/21 12:15 05/09/21 12:15 Labs: Lab Results 05/09/21 05/09/21 05/09/21 Range/Units 12:15 12:15 13:19 WBC 6.7 (4.5-11.0) X10^3/uL RBC 5.53 (4.5-5.9) X10^6/uL Hgb 17.2 (13.5-17.5) g/dL Hct 49.2 (41-53) % MCV 88.9 (80-100) fL MCH 31.2 (26-34) PG MCHC 35.1 (30-36) % RDW 13.4 (11.6-14.8) % Plt Count 132 L (150-400) X10^3/uL Neut % (Auto) 63.8 (50-75) % Lymph % (Auto) 24.2 L (25-40) % [place] % (Auto) 10.9 (3-14) % Eos % (Auto) 0.6 L (2-4) % Baso % (Auto) 0.5 (0-2) % Neut # (Auto) 4300 (6464-3764) /uL Lymph # (Auto) 1600 (1782-8745) /uL [place] # (Auto) 700 (0-900) /uL Eos # (Auto) 0 (0-450) /uL Baso # (Auto) 0 (0-100) /uL Sodium 137 (137-145) mmol/L Potassium 3.0 L (3.4-5.1) mmol/L Chloride 100 (98-107) mmol/L Carbon Dioxide 31 (22-32) mmol/L BUN 11 (9-20) mg/dL Creatinine 0.93 (0.66-1.25) mg/dL Estimated GFR > 60.0 (>60) mL/min BUN/Creatinine Ratio 11.8 (6-22) Glucose 127 H (80-110) mg/dL Calcium 8.8 (8.4-10.2) mg/dL Urine Color Urine Appearance Urine pH (4.5-8.0) Ur Specific [place] (1.000-1.035) Urine Protein (Negative) Urine Glucose (UA) (Negative) g/dL Urine Ketones (NEGATIVE) Urine Occult Blood (Negative) Urine Nitrate (Negative) Urine Bilirubin (NEGATIVE) Urine Urobilinogen (0.2) E.U./dL Ur Leukocyte Esterase (NEGATIVE) Urine RBC (0-5/HPF) Urine WBC (0-5/HPF) Amorphous Sediment Urine Bacteria (None) Ur Culture Indicated? U Opiates 300ng/mL cut (Negative) Ur Oxycodone Screen (Negative) Urine Methadone Screen (Negative) Ur Barbiturates Screen (Negative) U Tricyclic Antidepress (Negative) Ur Phencyclidine Scrn (Negative) Ur Amphetamines Screen (Negative) U Methamphetamines Scrn (Negative) Ur MDMA Scrn (Ecstasy) (Negative) U Benzodiazepines Scrn (Negative) Urine Cocaine Screen (Negative) U Marijuana (THC) Screen (Negative) SARS-CoV-2 (PCR) Positive H (Negative) 05/09/21 05/09/21 Range/Units 14:36 14:36 WBC (4.5-11.0) X10^3/uL RBC (4.5-5.9) X10^6/uL Hgb (13.5-17.5) g/dL Hct (41-53) % MCV (80-100) fL MCH (26-34) PG MCHC (30-36) % RDW (11.6-14.8) % Plt Count (150-400) X10^3/uL Neut % (Auto) (50-75) % Lymph % (Auto) (25-40) % [place] % (Auto) (3-14) % Eos % (Auto) (2-4) % Baso % (Auto) (0-2) % Neut # (Auto) (2862-6674) /uL Lymph # (Auto) (2312-8038) /uL [place] # (Auto) (0-900) /uL Eos # (Auto) (0-450) /uL Baso # (Auto) (0-100) /uL Sodium (137-145) mmol/L Potassium (3.4-5.1) mmol/L Chloride (98-107) mmol/L Carbon Dioxide (22-32) mmol/L BUN (9-20) mg/dL Creatinine (0.66-1.25) mg/dL Estimated GFR (>60) mL/min BUN/Creatinine Ratio (6-22) Glucose (80-110) mg/dL Calcium (8.4-10.2) mg/dL Urine Color Yellow Urine Appearance Clear Urine pH 6.5 (4.5-8.0) Ur Specific [place] <=1.005 (1.000-1.035) Urine Protein Negative (Negative) Urine Glucose (UA) Negative (Negative) g/dL Urine Ketones Negative (NEGATIVE) Urine Occult Blood Trace-lysed (Negative) Urine Nitrate Negative (Negative) Urine Bilirubin Negative (NEGATIVE) Urine Urobilinogen 0.2 (0.2) E.U./dL Ur Leukocyte Esterase Trace H (NEGATIVE) Urine RBC 1-5/hpf (0-5/HPF) Urine WBC 5-10/hpf H (0-5/HPF) Amorphous Sediment 1+ Urine Bacteria Few (2-10) H (None) Ur Culture Indicated? Specimen cultured U Opiates 300ng/mL cut Negative (Negative) Ur Oxycodone Screen Negative (Negative) Urine Methadone Screen Negative (Negative) Ur Barbiturates Screen Negative (Negative) U Tricyclic Antidepress Negative (Negative) Ur Phencyclidine Scrn Negative (Negative) Ur Amphetamines Screen Negative (Negative) U Methamphetamines Scrn Negative (Negative) Ur MDMA Scrn (Ecstasy) Negative (Negative) U Benzodiazepines Scrn Negative (Negative) Urine Cocaine Screen Negative (Negative) U Marijuana (THC) Screen Negative (Negative) SARS-CoV-2 (PCR) (Negative) Point of Care Testing Glucose POC 124 Imaging Data Chest x-ray: Radiologist's Impression: The subtle opacity at the upper lobes seen on CTA head and neck earlier today is not well appreciated. ? Stable small calcified granuloma.? CT scan - head: Radiologist's Impression: No acute intracranial abnormality demonstrated.? No acute intracranial hemorrhage. ? Chronic microvascular ischemic disease. ? Comment: Findings were discussed with Luis Armando Sanders at the time of dictation. ? This study fulfills neurological imaging criteria for inclusion or exclusion of acute stroke therapies based on available published neurological imaging guidelines.? CTA - brain/neck: Radiologist's Impression: 1. Study is significantly limited by motion artifact particularly at the skull base 2. No evidence of large vessel occlusion, aneurysm or vascular malformation, within the limits of the exam 3. Atrophy and chronic ischemic change without acute hemorrhage 4. Maxillary mucosal sinus disease, moderate pulmonary emphysema and probable prior granulomatous disease ? Any quantitative measurements of ICA stenosis were performed using NASCET criteria.? Right hip/ pelvis x-ray: Radiologist's Impression: no acute bony injury seen ECG Data Attestation: I personally reviewed and interpreted this ECG as follows: ( sinus bradycardia with first-degree AV block, rate 57 beats per minute. Old septal infarct. No acute ST T wave changes. No ectopy.) Critical Care Time Critical Care Time Critical Care Time: Yes Total Critical Care Time: 70 Attestation: critical care time included initial assessment the patient, review of multiple labs, more multiple radiology procedures. And multiple clinical decisions. Time included multiple consultations as noted above. The clinical situation was discussed and the patient is aware of the need for transfer. Discharge Plan Departure Patient Disposition: [facility] Clinical Impression: Acute CVA (cerebrovascular accident), High blood pressure, Acute hypokalemia, COVID Prescriptions: No Action aspirin [Adult Low Dose Aspirin] 81 mg tablet,delayed release (DR/EC) 81 mg PO QPM 0RF erythromycin 5 mg/gram (0.5 %) ointment 1 cm EYE-BOTH TID Qty: 1 0RF isosorbide dinitrate 30 mg tablet 15 mg PO BID 0RF fluticasone propionate [Flonase Allergy Relief] 50 mcg/actuation spray,suspension 1 spray NASAL BID Qty: 15.8 0RF Rx Instructions: administer 1 spray into each nostril morning and night lisinopril 40 MG tablet 2 tab PO QPM Qty: 0 0RF carvedilol [Coreg] 3.125 mg tablet 6.25 mg PO Q DAY Qty: 0 0RF diltiazem HCl [Cardizem LA] 420 mg tablet extended release 24 hr 240 mg PO DAILY Qty: 0 0RF doxazosin [Cardura] 2 mg tablet 8 mg PO QPM 0RF Label Comments: patient states 4 tabs. need to clarify sinze entry in computer was Yan FAUSTIN. jh hydralazine 0RF Referrals: Gumaro Puckett MD [Primary Care Provider] -
[2021-05-09 12:54] LABS: Add Manual Diff / Slide Review NO; Basophils Absolute Auto 0 /uL (0-100); Basophils Percent Auto 0.5 % (0-2); Eosinophils Absolute Auto 0 /uL (0-450); Eosinophils Percent Auto 0.6 % (2-4); Hematocrit 49.2 % (41-53); Hemoglobin 17.2 g/dL (13.5-17.5); Lymphocytes Absolute Auto 1600 /uL (1100-4500); Lymphocytes Percent Auto 24.2 % (25-40); Mean Corpuscular HGB Conc 35.1 % (30-36); Mean Corpuscular Hemoglobin 31.2 PG (26-34); Mean Corpuscular Volume 88.9 fL (80-100); Monocytes Absolute Auto 700 /uL (0-900); Monocytes Percent Auto 10.9 % (3-14); Neutrophils Absolute Auto 4300 /uL (1500-7000); Neutrophils Percent Auto 63.8 % (50-75); Platelet Count 132 X10^3/uL (150-400); Red Blood Cell Count 5.53 X10^6/uL (4.5-5.9); Red Cell Distribution Width 13.4 % (11.6-14.8); White Blood Cell Count 6.7 X10^3/uL (4.5-11.0)
[2021-05-09] MEDS: ALTEPLASE 9 MG/9 ML VIAL 540 MG IV (12:56)
[2021-05-09] MEDS: ALTEPLASE 81 MG/81 ML VIAL IV (13:00)
--- NOTE | 2021-05-09 13:04 | DI.CT.S_ITS ---
PROCEDURE: CT ANGIO HEAD AND NECK INDICATIONS: CVA, Dysarthria and right-sided weakness. TECHNIQUE: Pre-contrast 4.5 mm thick sections acquired from the foramen magnum to the vertex. After the administration of intravenous contrast, 1 mm thick sections acquired from the aortic arch through the [place] of [place]. Post-contrast 4.5 mm thick sections then re-acquired from the foramen magnum to the vertex COMPARISON: [facility], CR, XR CHEST 1V, 04/24/2019, 18:24. FINDINGS: Image quality: Study is limited by motion artifact, particularly at the vertebral basilar junction BRAIN: CSF spaces: Ventricles are normal in size and shape. Basal cisterns are patent. No extra-axial fluid collections. Brain: No midline shift. No intracranial bleeds or masses. [place]-white matter interface appears intact. Moderate cerebral and cerebellar volume loss with multifocal white matter chronic ischemic change noted. Skull and face: Calvarium and facial bones appear intact, without suspicious lesions. Orbits appear normal. Incidental high riding jugular bulb noted on the right Sinuses: Bilateral maxillary sinus mucosal thickening HEAD CT ANGIOGRAPHY: Anterior circulation: Intracranial internal carotid arteries are normal in size and flow. The flow within the paired anterior cerebral arteries is normal and symmetric. The flow within the middle cerebral arteries is normal and symmetric. The anterior communicating artery is seen. No aneurysms are seen. Posterior circulation: Visualized portions of the vertebral arteries demonstrate normal caliber, and join to form a normal appearing basilar artery. Flow within the posterior cerebral arteries is normal and symmetric. No aneurysms are seen. NECK CT ANGIOGRAPHY: Carotid system: The great vessels demonstrate a conventional anatomy as they arise from the aortic arch. The origins of the common carotid arteries appear patent. The common carotid arteries demonstrate normal caliber and courses. Both proximal internal carotid arteries show calcified and noncalcified atherosclerotic plaque without hemodynamically significant stenosis utilizing NASCET criteria. The internal carotid arteries demonstrate normal calibers and courses. Posterior circulation: The origins of the vertebral arteries both appear widely patent. The more superior extracranial portions of both vertebral arteries also demonstrate normal courses and calibers. They join to form a normal appearing basilar artery. Soft tissues: Visualized neck soft tissues demonstrate no suspicious abnormalities. In both lung apices, there is moderate pulmonary emphysema and multiple calcified nodules consistent with prior granulomatous disease, similar prior chest x-ray. Bones: No suspicious bony lesions. Visualized cervical spine appears normally aligned. Multilevel degenerative disc disease and arthropathy in the cervical spine IMPRESSION: 1. Study is significantly limited by motion artifact particularly at the skull base 2. No evidence of large vessel occlusion, aneurysm or vascular malformation, within the limits of the exam 3. Atrophy and chronic ischemic change without acute hemorrhage 4. Maxillary mucosal sinus disease, moderate pulmonary emphysema and probable prior granulomatous disease Any quantitative measurements of ICA stenosis were performed using NASCET criteria. Approved by: Jose Gillespie M.D. on 05/09/2021 at 13:41
[2021-05-09] MEDS: methylPREDNISolone 125 MG/2 ML VIAL IV (13:13)
[2021-05-09] MEDS: diphenhydrAMINE 50 MG/ML VIAL IV (13:13)
[2021-05-09 13:26] LABS: BUN Creatinine Ratio 11.8 (6-22); Blood Urea Nitrogen 11 mg/dL (9-20); Calcium 8.8 mg/dL (8.4-10.2); Carbon Dioxide 31 mmol/L (22-32); Chloride 100 mmol/L (98-107); Estimated Glomerular Filt Rate > 60.0 mL/min (>60); Glucose 127 mg/dL (80-110); HEMOLYSIS 23 (0-50); Sodium 137 mmol/L (137-145)
[2021-05-09 13:48] LABS: COVID19 -Nasal RAPID POSITIVE (Negative)
--- NOTE | 2021-05-09 13:57 | PC.NURSE ---
Pt informed of positive covid result, pt reports feeling bad for the past 2 weeks with cold-like symptoms, did not get tested prior.
[2021-05-09] MEDS: SODIUM CHLORIDE 0.9% 1,000 ML 150 ML IV (14:31)
--- NOTE | 2021-05-09 14:37 | DI.RAD.S_ITS ---
PROCEDURE: XR HIP W PEL IF DONE RT 2V INDICATIONS: right hip pain TECHNIQUE: AP pelvis with lateral view(s) of the right hip(s). COMPARISON: None. FINDINGS: Bones: No fractures or dislocations. Pelvic ring appears intact. No suspicious bony lesions. Soft tissues: The visualized bowel gas pattern is normal. No suspicious soft tissue calcifications. Contrast excreted in the bladder. IMPRESSION: No acute osseous abnormality. Dictated by: Demian Farias M.D. on 05/09/2021 at 15:16 Approved by: Demian Farias M.D. on 05/09/2021 at 15:16
[2021-05-09 14:39] LABS: Appearance Urine UA CLEAR; Bilirubin Urine UA NEGATIVE (NEGATIVE); Color Urine UA YELLOW; Glucose Urine UA NEGATIVE (Negative); Ketones Urine UA NEGATIVE (NEGATIVE); Leukocyte Esterase Urine UA TRACE (NEGATIVE); Nitrite Urine UA NEGATIVE (Negative); Occult Blood Urine UA TRACE-LYSED (Negative); Protein Urine UA NEGATIVE (Negative); Specific Gravity Urine UA <=1.005 (1.000-1.035); Urobilinogen Urine UA 0.2 E.U./dL (0.2); pH Urine UA 6.5 (4.5-8.0)
[2021-05-09 14:44] LABS: UR Morphine/Opiate cutoff 300 Negative (Negative); Ur Creatinine Normal (Normal); Ur Specific Gravity Normal (Normal); Urine Amphetamines Negative (Negative); Urine Barbiturates Negative (Negative); Urine Benzodiazepines Negative (Negative); Urine Cocaine Negative (Negative); Urine MDMA Negative (Negative); Urine Methadone Negative (Negative); Urine Methamphetamines Negative (Negative); Urine Oxycodone Negative (Negative); Urine Phencyclidine Negative (Negative); Urine Tetrahydrocannabinol Negative (Negative); Urine Tricyclic Antidepressant Negative (Negative); Urine pH Normal (Normal)
[2021-05-09 14:53] LABS: Amorphous Sediment Urine 1+; Bacteria Urine Few (2-10); Culture Indicated Urine Specimen Cultured; RBC Urine 1-5/HPF (0-5/HPF); WBC Urine 5-10/HPF (0-5/HPF)
--- NOTE | 2021-05-09 15:46 | DI.RAD.S_ITS ---
PROCEDURE: XR CHEST 1V INDICATIONS: Covid-19, CVA TECHNIQUE: One view of the chest was acquired. COMPARISON: [facility], CT, CT ANGIO HEAD AND NECK, 05/09/2021, 13:53. [facility], CR, XR CHEST 1V, 04/24/2019, 18:24. [facility], CR, XR CHEST 1V, 05/24/2018, 1:44. FINDINGS: Surgical changes and devices: None. Lungs and pleura: Several calcified granuloma are unchanged. The subtle opacity at the upper lobe seen on CT a earlier today is not well appreciated. No pleural effusions or pneumothorax. Mediastinum: Mediastinal contours appear unchanged. Heart size is normal. Bones and chest wall: No suspicious bony lesions. Overlying soft tissues appear unremarkable. IMPRESSION: The subtle opacity at the upper lobes seen on CTA head and neck earlier today is not well appreciated. Stable small calcified granuloma. If clinically indicated consider further evaluation with CT chest. Dictated by: Demian Farias M.D. on 05/09/2021 at 16:19 Approved by: Demian Farias M.D. on 05/09/2021 at 16:23
[2021-05-09] MEDS: POTASSIUM CHLORIDE IN WATER 10 MEQ/100 ML PIGGYBACK 100 MEQ IV (17:47)
== END 2021-05-09 18:20 | disposition short-term general hospital (02) ==
PROVIDERS: Emergency Provider Emergency Medicine; PCP Family Medicine
DX: I63.9 Cerebral infarction, unspecified (principal); U07.1 COVID-19; E87.6 Hypokalemia; I10 Essential (primary) hypertension; R29.711 NIHSS score 11; Z87.891 Personal history of nicotine dependence
CPT/HCPCS: 36415; 70450; 70496; 70498; 71045; 73502; 80048; 80305; 81001; 82962; 85025; 87077; 87086; 87186; 87635; 93005; 93010; 96361; 96365; 96367; 96375; 99285; 99291; 99292; C9803; J1200; J2930; J2997; Q9967